=== PATIENT | female | born 1935 | race Caucasian/White ===

== ENCOUNTER 2016-10-23 10:45 | Inpatient (IN) | payer OTHER ==
[~2016-10-23] VITALS: Ht 157.5 cm; Wt 72.6 kg
[~2016-10-23 10:45] MED LIST: AMLODIPINE BESY10 MG PO; ANTIVERT 12.512.5 M1; HYZAAR 12.5 MG-1 TAB PO; IRON65 MG; LEVOTHYROXIN0.075 M1 PO; LORAZEPAM0.5 MG PO; LOVASTATIN40 MG PO; METAMUCIL1 PAC PO; METFORMIN500 MG PO; ZOLPIDEM TARTRAT5 MG PO
--- NOTE | 2016-10-23 10:55 | NUR ---
SENT BY DR. DAHL FOR LOW BLOOD COUNT. HAD LABS DONE THIS AM. DENIES SOB, WEAKNESS OR CHEST PAIN. COLOR PALE.
--- NOTE | 2016-10-23 11:04 | NUR ---
PT AMBULATORY TO [facility] RM 6 FROM TRIAGE
--- NOTE | 2016-10-23 11:06 | NUR ---
KELLEE ANGUIANO AT BEDSIDE
--- NOTE | 2016-10-23 11:08 | ED GENERAL ADULT ---
History of Present Illness General Chief Complaint: General Adult Stated Complaint: SENT IN BY DR DAHL FOR LOW RBC? Source: patient, family, old records Exam Limitations: no limitations Allergies Coded Allergies: No Known Drug Allergies (10/23/16) adhesive (UNKNOWN 10/23/16) Reconcile Medications Amlodipine Besylate 10 MG TABLET 10 MG PO DAILY BP (Reported) Hydrochlorothiazide/Losartan (Hyzaar 12.5 MG-100 MG) 1 TAB TAB 1 TAB PO DAILY UNKNOWN (Reported) Levothyroxine Sodium 75 MCG TABLET 0.075 MG PO DAILY AC THYROID (Reported) Lorazepam 0.5 MG TABLET 0.5 MG PO DAILY UNKNOWN (Reported) Lovastatin 40 MG TABLET 1 TAB PO DAILY CHOLOSTEROL (Reported) with food Melatonin 10 MG TABLET 1 TAB PO QPM SLEEP (Reported) METFORMIN HCL (Metformin) 500 MG TABLET 500 MG PO BID DIABETES (Reported) Sertraline HCl 50 MG TABLET 1 TAB PO DAILY MENTAL HEALTH (Reported) Triage Note: SENT BY DR. DAHL FOR LOW BLOOD COUNT. HAD LABS DONE THIS AM. DENIES SOB OR WEAKNESS. Triage Nurses Notes Reviewed? yes HPI: Patient is an 81-year-old female sent in by her primary care doctor, Dr. Dahl, due to low blood count. Patient had outpatient blood work at 6:30 AM this morning and was found to have a hemoglobin of 5.7. Patient reports that yesterday she was feeling generalized weakness and fatigue. Patient is complaint free today. Pain is 0 out of 10. Patient denies lightheadedness, chest pain, difficulty breathing, melena, hematochezia, abdominal pain. (ANNMARIE GOODSON,MAMI) Vital Signs & Intake/Output Vital Signs & Intake/Output Vital Signs Date Time Temp Pulse Resp B/P Pulse O2 O2 Flow FiO2 Ox Delivery Rate 10/23 1342 81 20 184/78 98 Room Air 10/23 1327 99.0 78 20 187/78 97 Room Air 10/23 1321 78 181/76 10/23 1312 78 181/76 10/23 1258 77 15 204/81 95 Room Air 10/23 1231 98.6 77 18 197/100 10/23 1230 98.6 77 18 197/100 98 Room Air 10/23 1122 92 Room Air Room Air 10/23 1053 97.2 76 20 170/65 95 Room Air Past History Travel History Traveled to [place] past 21 day No Medical History Any Pertinent Medical History? see below for history Neurological: NONE EENT: NONE Cardiovascular: NONE Respiratory: NONE Gastrointestinal: pandiverticulosis Hepatic: NONE Renal: NONE Musculoskeletal: NONE Psychiatric: NONE Endocrine: diabetes, hypothyroidism Cancer(s): NONE Surgical History Surgical History: non-contributory Psychosocial History What is your primary language Honduran Tobacco Use: Never used ETOH Use: denies use Family History Hx Contributory? No (MAMI ARORA) Review of Systems Review of Systems Constitutional: Reports: malaise (yesterday, none today). Denies: chills, fever. EENTM: Reports: no symptoms. Respiratory: Denies: cough, short of breath. Cardiovascular: Denies: chest pain, syncope. GI: Denies: abdominal pain, nausea, bloody stool, vomiting. Musculoskeletal: Denies: back pain, neck pain. Skin: Reports: no symptoms. Neurological/Psychological: Reports: no symptoms. Hematologic/Endocrine: Reports: see HPI. Denies: bruising, bleeding. Immunologic/Allergic: Reports: no symptoms. (MAMI ARORA) Physical Exam Physical Exam General Appearance: well developed/nourished, alert, awake Head: atraumatic, normal appearance Eyes: Bilateral: PERRL, EOMI, pale conjunctivae. Ears, Nose, Throat: normal pharynx, normal ENT inspection, hearing grossly normal Neck: normal inspection, supple, full range of motion Respiratory: normal breath sounds, chest non-tender, no respiratory distress, lungs clear Cardiovascular: regular rate/rhythm Gastrointestinal: normal bowel sounds, soft, non-tender Rectal: normal exam, normal rectal tone, minimally trace heme-positive stool Back: normal inspection, normal range of motion Extremities: normal inspection, normal capillary refill, normal range of motion, no edema Neurologic/Psych: no motor/sensory deficits, awake, alert, oriented x 3, normal gait, normal mood/affect Skin: normal color, warm/dry Lymphatic: no anterior cervical dejuan Core Measures ACS in differential dx? No CVA/TIA Diagnosis: No Severe Sepsis Present: No Septic Shock Present: No (MAMI ARORA) Progress Differential Diagnoses I considered the following diagnoses in my evaluation of the patient: Anemia, demand ischemia, GI bleed Initial ED EKG: normal sinus rhythm 74 bpm possible LVH, no acute ST/T-wave changes compared to previous EKG Prior EKG: changed (qrs v1, v2) (MAMI ARORA) Plan of Care: Orders Procedure Date/time Status Consistent Carbohydrate 3 10/23 D Active CBC WITHOUT DIFFERENTIAL 10/23 1800 Active Pathway - chart 10/23 1351 Active House Staff 10/23 1351 Active Misc Message 10/23 1318 Active ED Holding Orders 10/23 1318 Active Vital Signs 10/23 1318 Active Code Status 10/23 1315 Active Patient Data 10/23 1253 Active Intake & Output 10/23 1246 Active Admit to inpatient 10/23 1233 Active RETICULOCYTE COUNT 10/23 1226 Complete HIGH DENSITY LIPOPROTEIN 10/23 1226 Active FOLIC ACID 10/23 1226 Active VITAMIN B12 10/23 1226 Active HAPTOGLOBIN 10/23 1221 Active FERRITIN 10/23 1221 Active CBC WITHOUT DIFFERENTIAL 10/23 1221 Complete BLOOD PRODUCT PICKUP 10/23 1215 Active LEUKOCYTE POOR (PACKED CELLS) 10/23 1123 Active MISTAKE 10/23 1112 Active PARTIAL THROMBOPLASTIN TIME 10/23 1112 Complete PROTHROMBIN TIME 10/23 1112 Complete EKG 10/23 1112 Active TYPE & SCREEN (NOT X-MATCH) 10/23 1112 Active Lab Add-on Test 10/23 UNK Active VTE Mechanical Prophylaxis 10/23 UNK Active Current Medications Sig/Regina Start time Last Medication Dose Stop Time Status Admin Heparin Sodium 5,000 UNIT Q8 10/23 1400 AC (Porcine) Sodium Chloride 1,000 ML ONCE ONE 10/23 1400 AC (Normal Saline 0.9%) 10/24 0319 Laboratory Tests 10/23/16 1226: Ferritin 5.0 L, HDL Cholesterol Pending, Vitamin B12 Pending, Folate Pending, CBC w Diff NO MAN DIFF REQ, RBC 2.50 L, MCV 73.8 L, MCH 23.2 L, RDW 17.3 H, MPV 7.1 L, Gran % 75.3 H, Lymphocytes % 10.6 L, Monocytes % 9.7 H, Eosinophils % 3.4, Basophils % 1.0, Absolute Granulocytes 4.5, Absolute Lymphocytes 0.6 L, Absolute Monocytes 0.6, Absolute Eosinophils 0.2, Absolute Basophils 0.1, PUBS MCHC 31.4 L, Retic Count 2.59 H 10/23/16 1221: Haptoglobin Pending 10/23/16 1118: PT 11.7, INR 1.12, APTT 28 1120: Discussed patient's results from 0630 this morning. Discussed benefits and risks of blood transfusion. Patient consented to blood transfusion, signed consent form. 1150: Discussed with Dr. Oakley. 1220: Discussed with Dr. Dahl: send off another CBC and a ferritin level. Transfuse, admit to his service. 1240: Seen by Dr. Dahl: If blood pressure remains elevated, tell house staff to start patient on Hydralazine 25mg PO Q8 1255: Seen by housestaff Dr. Pollard: requesting order for 5mg of IV hydralazine (MAMI ARORA) Departure Departure Time of Disposition: 1226 Disposition: STILL A PATIENT Condition: Stable Clinical Impression Primary Impression: Anemia Qualifiers: Anemia type: unspecified type Qualified Code: D64.9 - Anemia, unspecified Secondary Impressions: Hypertension Referrals: TONYA DAHL MD (PCP/Family) Departure Forms: Customer Survey General Discharge Information Admission Note Spoke With: TONYA DAHL MD Documentation of Exam: Documentation of any treatments & extenuating circumstances including Concerns Regarding Discharge (functional status, medication knowledge or non-compliance, living conditions, etc.) that warrant an admission rather than observation: Blood transfusion, serial complete blood cell counts, GI consultation, consider hematology consultation. (MAMI ARORA) PA/DIELECTRIC PRESS OPERATOR Co-Sign Statement Statement: ED Attending supervision documentation- [x] I saw and evaluated the patient. I have also reviewed all the pertinent lab results and diagnostic results. I agree with the findings and the plan of care as documented in the PA's/DIELECTRIC PRESS OPERATOR's documentation. [] I have reviewed the ED Record and agree with the PA's/DIELECTRIC PRESS OPERATOR's documentation. [] Additions or exceptions (if any) to the PAs/DIELECTRIC PRESS OPERATOR's note and plan are summarized below: [] (LACI JONES,ALICE Fernandez) Critical Care Note Critical Care Note Critical Care Time: 30-74 min (MAMI ARORA)
--- NOTE | 2016-10-23 11:20 | NUR ---
IV ACCESS ESTABLISHED, #20 RAC LABS (PINK AND BLUE TOP TUBES) DRAWN/SENT TO LAB PT TRACE GUIAC POSITIVE PER RECTAL EXAM BY KELLEE ANGUIANO DONE WITH THIS RN PRESENT. PER PATIENT HAD ROUTINE BLOOD WORK DONE THIS MORNING STATES LAST WEEK HAD SOME VOMITING RELATED TO MEDICATION CHANGES AND SINCE THEN "SOME DAYS I FEEL GOOD AND SOME DAYS I FEEL TIRED". STATES TODAY WAS A GOOD DAY SHE WENT SHOPPING. DENIES ANY PAIN OR DIFFICULTY BREATHING.
[2016-10-23] MEDS ORDERED: SERTRALINE HCL50 MG PO (11:36)
[2016-10-23 11:37] LABS: PT 11.7 SEC (9.4-12.5); PTT 28 SEC (25-37)
[2016-10-23] MEDS ORDERED: MELATONIN10 M2 PO (11:37)
--- NOTE | 2016-10-23 12:32 | NUR ---
PT MEIDCATED WITH NORVASC PER EMAR FOR BP 197/100.
[2016-10-23 12:36] LABS: ABSOLUTE BASOPHIL COUNT 0.1 /CUMM (0.0-0.2); ABSOLUTE EOSINOPHIL COUNT 0.2 /CUMM (0.0-0.7); ABSOLUTE GRANULOCYTE CT 4.5 /CUMM (1.4-6.5); ABSOLUTE MONOCYTE COUNT 0.6 /CUMM (0.10-0.60); MEAN CORPUSCULAR HGB 23.2 PG (27.0-31.0)
[2016-10-23 12:43] LABS: ABSOLUTE LYMPH COUNT 0.6 /CUMM (1.2-3.4); EOSINOPHIL % 3.4 % (0-5); GRANULOCYTE % 75.3 % (42.2-75.2); MEAN CORPUSCULAR HGB CONC 31.4 G/DL (33.0-37.0); MEAN CORPUSCULAR VOLUME 73.8 FL (81.0-99.0); MEAN PLATELET VOLUME 7.1 FL (7.4-10.4); PLATELET COUNT 561 /CUMM (130-400); RBC DISTRIBUTION WIDTH 17.3 % (11.5-14.5)
[2016-10-23 12:47] LABS: HEMATOCRIT 18.4 % (37-47)
--- NOTE | 2016-10-23 12:51 | NUR ---
CRITICAL TEST RESULTS [id number] DEDE QUACH 81 F TESTS AND RESULTS: H/H 5.8/18.4 Results received and read back by: PARRISH LEAVITT Results received date and time: 10/23/16 1251 The following provider was notified of the results, and read the results back: KELLEE VINCENT Notified date and time: 10/23/16 at 1248
--- NOTE | 2016-10-23 12:56 | NUR ---
PT. IS A/O X 3. DENIES ANY COMPLAINTS AT THIS TIME. 500 ML OF PRBC BLOOD INFUSING AT THIS TIME PER ORDERS. VSS. NO ACUTE DISTRESS NOTED. WILL CONTINUE TO MONITOR.
--- NOTE | 2016-10-23 13:22 | NUR ---
PT B/P 181/76, MEDICATED WITH HYDRALAZINE PER ORDERS HOUSE STAFF WILL CONTINUE TO MONITOR.
--- NOTE | 2016-10-23 13:27 | NUR ---
PT HAS BED ASSIGNMENT 238-1. RN NOTIFIED.
--- NOTE | 2016-10-23 13:34 | History & Physical ---
See Addendum General Information and HPI MD Statement: I have seen and personally examined DEDE QUACH and documented this H&P. The patient is a 81 year old F who presented with a patient stated chief complaint of [anemia, weakness]. Source of Information: patient, old records Exam Limitations: no limitations History of Present Illness: Patient is 81 year old female with PMH of HTN, HLD, acid reflux, anemia ( previously on iron pills, stopped 6 months ago by PCP after HB number improved), was sent by her PCP, Dr. Viramontes, after her morning CBC results. Per records, patient's HB was 5.7. Patient reports that she has felt very weak lately however she denied any palpitations, exertional dyspnea, any evidence of bleeding, she has felt a little constipated but never saw blood in her stools. Patient reports that she consumes a tea and a toast diet with little intake of fresh green leafy vegitables. Patient had an egd and colonoscopy done in 2010 was negative for any obvious finding. Patient lives at home with her and is completely independent in her activitis and walking. Denies any Chest pain, abdominal pain, headache, dizziness, lightheadedness, burning micturation etc. Patient's BP in ER was 204/80, she was given 10 mg oral amlodipine followed by 5 mg IV hydralazine after 15 minutes. Allergies/Medications Allergies: Coded Allergies: No Known Drug Allergies (10/23/16) adhesive (UNKNOWN 10/23/16) Home Med list Amlodipine Besylate 10 MG TABLET 10 MG PO DAILY BP (Reported) Hydrochlorothiazide/Losartan (Hyzaar 12.5 MG-100 MG) 1 TAB TAB 1 TAB PO DAILY UNKNOWN (Reported) Levothyroxine Sodium 75 MCG TABLET 0.075 MG PO DAILY AC THYROID (Reported) Lorazepam 0.5 MG TABLET 0.5 MG PO DAILY UNKNOWN (Reported) Lovastatin 40 MG TABLET 1 TAB PO DAILY CHOLOSTEROL (Reported) with food Melatonin 10 MG TABLET 1 TAB PO QPM SLEEP (Reported) METFORMIN HCL (Metformin) 500 MG TABLET 500 MG PO BID DIABETES (Reported) Sertraline HCl 50 MG TABLET 1 TAB PO DAILY MENTAL HEALTH (Reported) Compliance With Home Meds: GOOD Past History Travel History Traveled to [place] past 21 day No Medical History Neurological: NONE EENT: NONE Cardiovascular: NONE Respiratory: NONE Gastrointestinal: pandiverticulosis Hepatic: NONE Renal: NONE Musculoskeletal: NONE Psychiatric: NONE Endocrine: diabetes, hypothyroidism Cancer(s): NONE Surgical History Surgical History: hernia repair-incisional Past Family/Social History Psychosocial History ETOH Use: denies use Review of Systems Review of Systems Constitutional: Reports: see HPI. Exam & Diagnostic Data Last 24 Hrs of Vital Signs/I&O Vital Signs Date Time Temp Pulse Resp B/P Pulse O2 O2 Flow FiO2 Ox Delivery Rate 10/23 1327 99.0 78 20 187/78 97 Room Air 10/23 1321 78 181/76 10/23 1312 78 181/76 10/23 1258 77 15 204/81 95 Room Air 10/23 1231 98.6 77 18 197/100 10/23 1230 98.6 77 18 197/100 98 Room Air 10/23 1122 92 Room Air Room Air 10/23 1053 97.2 76 20 170/65 95 Room Air Intake & Output 10/23 1600 10/23 0800 10/23 0000 Intake Total 500 Output Total Balance 500 Intake, Blood 500 Product Patient 72.575 kg Weight Physical Exam General Appearance Alert, Oriented X3, Cooperative, No Acute Distress Skin pale Neck Supple, No JVD Cardiovascular Regular Rate, Normal S1, Normal S2 Lungs Clear to Auscultation, Normal Air Movement Abdomen Normal Bowel Sounds, Soft, No Tenderness Extremities b/l pitting edema Last 24 Hrs of Labs/Gerard: Laboratory Tests 10/23/16 1226: Ferritin 5.0 L, CBC w Diff NO MAN DIFF REQ, RBC 2.50 L, MCV 73.8 L, MCH 23.2 L, RDW 17.3 H, MPV 7.1 L, Gran % 75.3 H, Lymphocytes % 10.6 L, Monocytes % 9.7 H, Eosinophils % 3.4, Basophils % 1.0, Absolute Granulocytes 4.5, Absolute Lymphocytes 0.6 L, Absolute Monocytes 0.6, Absolute Eosinophils 0.2, Absolute Basophils 0.1, PUBS MCHC 31.4 L 10/23/16 1118: PT 11.7, INR 1.12, APTT 28 Assessment/Plan Assessment: Patient is 81 year old female with PMH of HTN, HLD, acid reflux, anemia ( previously on iron pills, stopped 6 months ago by PCP after HB number improved), was sent by her PCP, Dr. Viramontes, after her morning CBC results. Per records, patient's HB was 5.7. Patient reports that she has felt very weak lately however she denied any palpitations, exertional dyspnea, any evidence of bleeding, she has felt a little constipated but never saw blood in her stools. Patient reports that she consumes a tea and a toast diet with little intake of fresh green leafy vegitables. Patient had an egd and colonoscopy done in 2010 was negative for any obvious finding. Vitals and Labs as above No imaging done in ER Assessment and plan WIll admit the patient to general medicine floor Patient is getting transfusion in ER, will check CBC post transfusion and keep HB > 8 GI consult service on board, per Dr. Jones, patient can eat and would probably benefit from pill cam study as an outpatient. Will continue amlodipine for HTN and hold HCTZ as patient has elevated creatinine. WIll hydarte with one bag of NS as patient looks dry will hold metformin and check finger sticks, can start on low dose SS if BS > 200 DVT ppx SC heprin Patient is Full code As Ranked By This Provider Problem List: 1. Anemia Qualifiers Anemia type: unspecified type Qualified Code: D64.9 - Anemia, unspecified Core Measures/Miscellaneous Acute Coronary Syndrome ACS Diagnosis: No Cerebrovascular Accident CVA/TIA Diagnosis: No Congestive Heart Failure CHF Diagnosis: No Venous Thromboembolism VTE Risk Factors: Age > 40 VTE Prophylaxis Ordered Inpt: Mechanical (ALPS/TEDS) No Mech VTE prophylaxis d/t: No contraindications No VTE Pharm Prophylaxis d/t: No contraindications VTE Diagnosis: No VTE Type: NONE VTE Confirmed by (Test): NONE Severe Sepsis Severe Sepsis Present: No Septic Shock Septic Shock Present: No Miscellaneous Documentation Attending Case Discussed With: TONYA VIRAMONTES MD Primary Care Physician: TONYA VIRAMONTES MD Patient sees these Specialists Ana M Level of Patient Care: General Medicine
--- NOTE | 2016-10-23 13:48 | NUR ---
PT ROOM IS READY PER NURSING AREA INTELLIGENCE TECHNICIAN.
--- NOTE | 2016-10-23 14:18 | NUR ---
REPORT TO DAVID LEBRON
--- NOTE | 2016-10-23 14:44 | NUR ---
BLOOD TRANSFUSION COMPLETED AWAITING TRANSPORT AT THIS TIME.
--- NOTE | 2016-10-23 15:22 | NUR ---
TRANSPORT CALLED AGAIN, THEY RELAYED THAT THEY WILL BE HERE SHORTLY.
--- NOTE | 2016-10-23 15:40 | NUR ---
PT ARRIVED TO ROOM 238 VIA STRECHER FROM ER AT 1540. PT AMBULATED TO BED FROM STRETCHER, STEADY GAIT. UPON ASSESSMENT, PT A/V/OX3. ON RA. LCTA. DENIES ANY CP, SOB. SKIN INTACT. LAST BM 10/23/16. FAMILY AT BEDSIDE. PT AWARE OF POC AND NEED FOR ONE MORE UNIT OF PRBCS AT THIS TIME. #20 RAC FLUSHING EASILY. PT OFFERS NO COMPLAINTS. ORIENTED TO ROOM, CALL AGUERO, AND STAFF. WILL CONTINUE TO MONITOR.
--- NOTE | 2016-10-23 16:18 | Cons- Gastroenterology ---
General Information and HPI Consulting Request Date of Consult: 10/23/16 Requested By: NABILA OJNES,TONYA Wiseman Reason for Consult: anemia, occult blood in stool Source of Information: patient, old records Exam Limitations: no limitations History of Present Illness: Ms. Howard is an 81 year old female who was sent in by her PCP after she was found to be profoundly anemic on routine blood work. She has noted some generalized weakness over the past sevearl weeks, but the blood work was actually being drawn in anticipation of an office visit in the coming weeks. She is without any abdominal pain with eating. She did have some bilious vomiting a few weeks ago when she tried a new medication, but she has been without any hematemesis and this stopped with cessation of the medication. She has been having a significant amount of heartburn that she has been taking a lot of Tums for, but she is without any significant dysphagia. Her bowel movements are normal and she is without any bright blood per rectum, melena, diarrhea or constipation. Since arrival in the ER she has been hemodynamically stable, but she was noted to have a hemoglobin of 5.8 with an MCV of 73 and an elevated platelet count. She had a similar hospitalization about 1 year ago for anemia where she underwent an endoscopic workup which was negative for source of anemia or active bleeding and it was recommended she have a PillCam at that time which she declined. Allergies/Medications Allergies: Coded Allergies: No Known Drug Allergies (10/23/16) adhesive (UNKNOWN 10/23/16) Home Med List: Amlodipine Besylate 10 MG TABLET 10 MG PO DAILY BP (Reported) Hydrochlorothiazide/Losartan (Hyzaar 12.5 MG-100 MG) 1 TAB TAB 1 TAB PO DAILY UNKNOWN (Reported) Levothyroxine Sodium 75 MCG TABLET 0.075 MG PO DAILY AC THYROID (Reported) Lorazepam 0.5 MG TABLET 0.5 MG PO DAILY UNKNOWN (Reported) Lovastatin 40 MG TABLET 1 TAB PO DAILY CHOLOSTEROL (Reported) with food Melatonin 10 MG TABLET 1 TAB PO QPM SLEEP (Reported) METFORMIN HCL (Metformin) 500 MG TABLET 500 MG PO BID DIABETES (Reported) Sertraline HCl 50 MG TABLET 1 TAB PO DAILY MENTAL HEALTH (Reported) Current Medications: Current Medications Sig/Regina Start time Last Medication Dose Route Stop Time Status Admin Amlodipine Besylate 10 MG DAILY 10/24 1000 AC PO Amlodipine Besylate 0 .STK-MED ONE 10/23 1227 DC PO Amlodipine Besylate 10 MG ONCE ONE 10/23 1215 DC 10/23 PO 10/23 1216 1231 Atorvastatin Calcium 10 MG 1700 10/23 1700 AC PO Heparin Sodium 5,000 UNIT Q8 10/23 1400 AC (Porcine) SC Hydralazine HCl 0 .STK-MED ONE 10/23 1312 DC .ROUTE Hydralazine HCl 5 MG ONCE ONE 10/23 1300 DC 10/23 IV 10/23 1301 1321 Levothyroxine Sodium 0.075 MG DAILY AC 10/23 1407 AC PO Melatonin 3 MG AT BEDTIME 10/23 2200 AC PO Sertraline HCl 50 MG DAILY 10/23 1406 AC PO Sodium Chloride 1,000 ML ONCE ONE 10/23 1400 AC IV 10/24 0319 Past History Travel History Traveled to [place] past 21 day No Medical History Neurological: NONE EENT: NONE Cardiovascular: NONE Respiratory: NONE Gastrointestinal: pandiverticulosis Hepatic: NONE Renal: NONE Musculoskeletal: NONE Psychiatric: NONE Endocrine: diabetes, hypothyroidism Cancer(s): NONE Surgical History Surgical History: non-contributory Psychosocial History ETOH Use: denies use Review of Systems Review of Systems Constitutional: Reports: malaise, weakness. Denies: fever. EENTM: Denies: no symptoms. Cardiovascular: Denies: no symptoms. Respiratory: Denies: no symptoms. GI: Reports: see HPI. Genitourinary: Denies: no symptoms. Musculoskeletal: Denies: no symptoms. Skin: Denies: no symptoms. Neurological/Psychological: Denies: no symptoms. Hematologic/Endocrine: Denies: no symptoms. Immunologic/Allergic: Denies: no symptoms. All Other Systems: Reviewed and Negative Exam & Diagnostic Data Vital Signs and I&O Vital Signs Date Time Temp Pulse Resp B/P Pulse O2 O2 Flow FiO2 Ox Delivery Rate 10/23 1443 99.1 74 18 172/75 96 Room Air 10/23 1413 99.0 75 18 174/75 98 Room Air 10/23 1342 81 18 184/78 98 Room Air 10/23 1327 99.0 78 18 187/78 97 Room Air 10/23 1321 78 181/76 10/23 1312 78 181/76 10/23 1258 77 15 204/81 95 Room Air 10/23 1231 98.6 77 18 197/100 10/23 1230 98.6 77 18 197/100 98 Room Air 10/23 1122 92 Room Air Room Air 10/23 1053 97.2 76 20 170/65 95 Room Air Intake & Output 10/23 0400 10/22 0400 10/21 0400 Intake Total 500 Output Total Balance 500 Intake, Blood 500 Product Patient 160 lb Weight Physical Exam General Appearance: well developed/nourished, no apparent distress, alert, awake , comfortable Head: atraumatic, normal appearance Eyes: Bilateral: normal appearance. Ears, Nose, Throat: normal pharynx, normal ENT inspection Neck: normal inspection, supple, full range of motion Respiratory: normal breath sounds, chest non-tender Cardiovascular: regular rate/rhythm Gastrointestinal: normal bowel sounds, soft, non-tender Rectal: deferred, trace positive per ER Back: normal inspection Extremities: normal inspection, normal capillary refill, normal range of motion, no edema Neurologic/Psych: no motor/sensory deficits, awake, alert, oriented x 3 Skin: intact, normal color, warm/dry Results Pertinent Lab Results: Laboratory Tests 10/23 10/23 10/23 1226 1221 1118 Chemistry Ferritin (11.1 - 264 ng/mL) 5.0 L HDL Cholesterol (40 - 60 mg/dL) 46 Vitamin B12 (239 - 931 pg/mL) 673 Folate (2.76 - 20.0 ng/mL) > 20.0 H Coagulation PT (9.4 - 12.5 SEC) 11.7 INR (0.90 - 1.19) 1.12 APTT (25 - 37 SEC) 28 Hematology CBC w Diff NO MAN DIFF REQ WBC (4.8 - 10.8 /CUMM) 6.0 RBC (4.20 - 5.40 /CUMM) 2.50 L Hgb (12.0 - 16.0 G/DL) 5.8 *L Hct (37 - 47 %) 18.4 *L MCV (81.0 - 99.0 FL) 73.8 L MCH (27.0 - 31.0 PG) 23.2 L RDW (11.5 - 14.5 %) 17.3 H Plt Count (130 - 400 /CUMM) 561 H MPV (7.4 - 10.4 FL) 7.1 L Gran % (42.2 - 75.2 %) 75.3 H Lymphocytes % (20.5 - 51.1 %) 10.6 L Monocytes % (1.7 - 9.3 %) 9.7 H Eosinophils % (0 - 5 %) 3.4 Basophils % (0.0 - 2.0 %) 1.0 Absolute Granulocytes (1.4 - 6.5 /CUMM) 4.5 Absolute Lymphocytes (1.2 - 3.4 /CUMM) 0.6 L Absolute Monocytes (0.10 - 0.60 /CUMM) 0.6 Absolute Eosinophils (0.0 - 0.7 /CUMM) 0.2 Absolute Basophils (0.0 - 0.2 /CUMM) 0.1 PUBS MCHC (33.0 - 37.0 G/DL) 31.4 L Retic Count (0.5 - 2.0 %) 2.59 H Haptoglobin Pending Assessment/Plan Assessment/Recommendations: Assessment: Ms. Howard is an 81-year-old female who has been noted to have a microcytic anemia on routine lab work. Considering she is microcytic and is without a history of overt GI bleeding I suspect that she has been losing blood over time and considering her negative endoscopic workup in 2014 when she also presented with anemia I suspect a small bowel source of anemia such as small bowel AVMs. As this is now the second time in the past several years this has occurred I suspect that the bleeding is benign in etiology. Her elevated platelet count does suggest that she may have had some active recent bleeding, but her BUN to creatinine ratio is not elevated and she is hemodynamically stable therefore I do not feel she has any active bleeding and repeat endoscopic intervention is not urgent. I suspect her blood count will improve with transfusion and she will likely be able to be discharged home over the weekend to pursue an outpatient PillCam which she is now agreeable to. Recommendations: 1. Follow CBCs every 12 hours and transfuse as needed to keep her hemoglobin greater than 7 or as per cardiology recommendations. 2. Start an oral PPI for her reflux. 3. Start oral iron supplementation. 4. Notify GI for signs of overt GI bleeding such as melena or bright blood per rectum. 5. Advance diet as tolerated. 6. If the patient's hemoglobin corrected appropriately with transfusion would give consideration to discharging her over the weekend to follow up for an outpatient small bowel PillCam, however if her hemoglobin does not improve with transfusion consideration will then be given for an inpatient push enteroscopy which would be performed on Wednesday. I will continue to follow this patient and make further recognitions based on her clinical course. Problem List: 1. Anemia Copies To: NABILA JONES,TONYA Trevizo. Consult Acknowledgment - Thank you for your consult request.
[2016-10-23 16:50] VITALS: BP 152/42
--- NOTE | 2016-10-23 17:53 | Admission Certification ---
Admission Certification Certification Statement - As attending physician, I certify that at the time of - admission, based on clinical presentation, severity of - symptoms, need for further diagnostic testing and - therapeutic interventions, and risk of adverse outcomes - without in-hospital treatment, in my clinical assessment, - this patient requires an acute hospital stay for a minimum - of two nights or longer. I have also considered psychsocial - factors such as support system, advanced age, financial - issues, cognitive issues, and failed out-patient treatments, - past re-admission history, safety of patient, and lack of - compliance as applicable. Specific rationale supporting this admission is: SEVERE ANEMIA
[2016-10-23 21:55] LABS: ABSOLUTE BASOPHIL COUNT 0 /CUMM (0.0-0.2); ABSOLUTE EOSINOPHIL COUNT 0.2 /CUMM (0.0-0.7); ABSOLUTE GRANULOCYTE CT 5.1 /CUMM (1.4-6.5); ABSOLUTE LYMPH COUNT 0.9 /CUMM (1.2-3.4); ABSOLUTE MONOCYTE COUNT 0.8 /CUMM (0.10-0.60); BASOPHIL % 0.2 % (0.0-2.0); EOSINOPHIL % 3.4 % (0-5); GRANULOCYTE % 71.9 % (42.2-75.2); MEAN CORPUSCULAR HGB CONC 32.8 G/DL (33.0-37.0); MEAN PLATELET VOLUME 7.1 FL (7.4-10.4); PLATELET COUNT 495 /CUMM (130-400); RBC DISTRIBUTION WIDTH 18.1 % (11.5-14.5); WHITE BLOOD CELL COUNT 7.2 /CUMM (4.8-10.8)
[2016-10-23 22:03] LABS: HEMATOCRIT 25.6 % (37-47); MEAN CORPUSCULAR HGB 25.6 PG (27.0-31.0); MEAN CORPUSCULAR VOLUME 78.1 FL (81.0-99.0); RED BLOOD CELL CT 3.28 /CUMM (4.20-5.40)
--- NOTE | 2016-10-23 23:00 | NUR ---
CALLED [employer] US[employer] INTERFACE DEVELOPER IMGE ABOUT PTS BP AT THIS TIME: 158/62. PER [employer] USER INTERFACE DEVELOPER, BP OK. REPORT PASSED ONTO NEXT SHIFT RN. WILL CONTINUE TO MONITOR.
[2016-10-23 23:05] VITALS: BP 158/62
[2016-10-24] VITALS (7 sets, daily range): BP systolic 150–180; BP diastolic 54–80
--- NOTE | 2016-10-24 01:58 | NUR ---
PT BP 160/74 HR 71, DENIES CHEST PAIN, DENIES SOB, DIZZINES, NAUSEA/VOMITTING. PAGED LISANDRO SAMUELS, ONE TIME HYDROCHOLORTHIAZIDE ORDERED, WILL RECHECK BP IN 45 MINUTES.
--- NOTE | 2016-10-24 05:25 | Event Note ---
Event Note Event Note: At 5 AM, we were alerted by nursing staff that patient was noted to be confused, which was an acute change from her baseline of AAO X 3. Her BP was noted to be elevated to 180/70 despite receiving 12.5 mg of PO HCTZ two hours earlier. Of note, patient had been endorsing headache for the past few hours. Patient was examined at bedside. She appeared to comfortable and in no respiratory distress. Per nursing staff, she was satting well on room air. She was oriented to person only, and was not able to state where she was or the date. She had no gross focal deficits on neurological exam. She appeared confused and slightly agitated and combative, initially refusing to comply with testing. CT Head, EKG and troponins were ordered. Another dose of HCTZ 12.5 mg PO was given. Fingerstick blood glucose was 124. EKG showed normal sinus rhythm and no acute changes. CT Head came back negative for any acute process including bleed. At 7 AM, patient' s mental status had improved completely back to baseline.
[2016-10-24 06:39] LABS: ABSOLUTE BASOPHIL COUNT 0 /CUMM (0.0-0.2); ABSOLUTE EOSINOPHIL COUNT 0.3 /CUMM (0.0-0.7); ABSOLUTE LYMPH COUNT 0.5 /CUMM (1.2-3.4); ABSOLUTE MONOCYTE COUNT 0.6 /CUMM (0.10-0.60); BASOPHIL % 0.2 % (0.0-2.0); GRANULOCYTE % 80.3 % (42.2-75.2); HEMATOCRIT 27.6 % (37-47); MEAN CORPUSCULAR HGB 25.5 PG (27.0-31.0); MEAN CORPUSCULAR HGB CONC 32.7 G/DL (33.0-37.0); MEAN CORPUSCULAR VOLUME 78.1 FL (81.0-99.0); MEAN PLATELET VOLUME 7.1 FL (7.4-10.4); PLATELET COUNT 532 /CUMM (130-400); RBC DISTRIBUTION WIDTH 17.7 % (11.5-14.5); RED BLOOD CELL CT 3.54 /CUMM (4.20-5.40); WHITE BLOOD CELL COUNT 7.5 /CUMM (4.8-10.8)
--- NOTE | 2016-10-24 07:00 | NUR ---
AT 0500 CALLED INTO PT'S ROOM BY TECH, PT WAS COMBATIVE WITH TECH TRYING TO HIT HER, PT IS CONFUSED AND ONLY ORIENTED TO SELF, VITALS TAKEN 180/70, HR 99, 02 SAT 97% ON RA, RR 20, AFEBRILE, LISANDRO SAMUELS MD PAGED AND TO BEDSIDE TO ASSESS, STAT LABS, EKG, BLOOD SUGAR AND HEAD CT ORDERED. PT REFUSING TO LET THIS RN OR TECH TAKE BLOOD SUGAR, DRAWN LABS OR DO EKG. PT INSISTING TO SPEAK TO , CALLED AND CAME TO HOSPITAL. PT PARANOID STATING THE WATER SHE IS DRINKING IS PUTTING HER TO SLEEP AND QUESTIONING STAFF. AT BEDSIDE, PT NOW ALLOWING STAFF TO DRAWN LABS, TAKE BLOOD SUGAR AND DO EKG. BLOOD SUGAR 124. PT NOW ALERT AND ORIENTED X3 UP TO BATHRROM WITH STEADY GAIT AND FULLY AWARE, APOLOZING FOR BEING COMBATIVE EARLIER. PT DOWN TO CAT SCAN, WILL FOLLOW UP.
--- NOTE | 2016-10-24 07:09 | CT SCAN REPORT ---
EXAMINATION: CT HEAD WITHOUT CONTRAST CLINICAL INFORMATION: Acute onset confusion. Elevated blood pressure. COMPARISON: 04/29/2012 TECHNIQUE: Contiguous axial imaging was performed from the skull base to vertex without intravenous contrast. DLP: 601 mGy-cm. FINDINGS: Motion limits the evaluation. There is no evidence of acute intracranial hemorrhage or territorial infarction. No abnormal mass effect or midline shift is seen. Pollard to white matter differentiation is well preserved. No extra-axial fluid collections are identified. No hydrocephalus. Proportional prominence of the ventricles and sulcal spaces is consistent with moderate volume loss. Patchy periventricular and deep white matter hypoattenuation is consistent with mild small vessel ischemic changes. The osseous structures and soft tissues are normal. The mastoid air cells and visualized portions of the paranasal sinuses are well aerated. IMPRESSION: Motion limited study. No acute intracranial pathology. This critical result was discussed with Brianne Durán MD by telephone at 10/24/2016 6:55 AM and it was ascertained that the content and urgency of the report was understood at the time of direct communication.
--- NOTE | 2016-10-24 07:32 | PN- Housestaff ---
Subjective Follow-up For: Severe anemia Complaints: no complaints Subjective: I examined the patient today. She was resting comfortably in her chair not in any acute distress, sitting did not have any complaints either. Vitals have been stable. However, overnight she had an episode of hypertension and confusion. CT scan was normal, blood pressure was lowered. No changes neurologically. Review of Systems Constitutional: Reports: no symptoms. Cardiovascular: Reports: no symptoms. Respiratory: Reports: no symptoms. Gastrointestinal: Reports: no symptoms. Genitourinary: Reports: no symptoms. Musculoskeletal: Reports: no symptoms. Neurological/Psychological: Reports: no symptoms. Hematologic/Endocrine: Denies: bruising, bleeding, polyuria, polydipsia. Objective Last 24 Hrs of Vital Signs/I&O Vital Signs Date Time Temp Pulse Resp B/P Pulse O2 O2 Flow FiO2 Ox Delivery Rate 10/24 1457 97.7 68 20 160/58 94 10/24 0937 80 168/70 10/24 0728 176/80 10/24 0530 97.6 100 20 180/70 97 Room Air 10/24 0241 160/68 10/24 0045 160/74 10/23 2305 97.6 71 20 158/62 92 Room Air 10/23 1650 98.0 79 20 152/42 96 Room Air Intake & Output 10/24 1600 10/24 0800 10/24 0000 Intake Total 231 844 6309 Output Total Balance 578 515 6615 Intake, IV 225 500 Intake, Oral 600 240 600 Number 0 Bowel Movements Physical Exam General Appearance: Alert, Oriented X3, Cooperative, No Acute Distress Other Physical Findings: Physical examnination: General: well nourished patient not in distress, pulse is bounding (expected) Head: Normocephalic, atraumatic Eyes: Pupils normal in size, regular, reacting to light and accommodation, EOM normal Ears: B/l normal on inspection Nose: Normal on inspection Throat/mouth: Moist mucosa Neck: Supple, full range of motion, no thyromegaly Heart: Regular rate, regular rhythm, heart sound is loud S2 Lung: Normal breath sound bilaterally Added sound not heard Abd: Soft, non-tender, no distention appreciated Back: Normal range of motion Extremities: Normal knee exam bilaterally, no pedal edema, Distal neurovascular intact Neurologic: Alert, oriented x3, Cranial exam grossly intact, Speech is clear and coherent Skin: Warm and dry Psychiatric: Calm, cooperative, coherant Current Medications: Current Medications Sig/Regina Start time Last Medication Dose Route Stop Time Status Admin Acetaminophen 650 MG ONCE ONE 10/24 0300 DC 10/24 PO 10/24 030 0307 Acetaminophen 650 MG ONCE ONE 10/23 1999 DC 10/23 PO 10/23 Amlodipine Besylate 10 MG DAILY 10/24 1000 AC 10/24 PO 0937 Atorvastatin Calcium 10 MG 1700 10/23 1700 AC 10/23 PO 211 Ferrous Sulfate 325 MG TID 10/23 2200 AC 10/24 PO 0937 Heparin Sodium 5,000 UNIT Q8 10/23 1400 DC (Porcine) SC Hydralazine HCl 25 MG TID 10/24 1600 AC PO Hydrochlorothiazide 12.5 MG DAILY 10/24 1000 AC 10/24 PO 0937 Hydrochlorothiazide 12.5 MG ONCE ONE 10/24 0545 DC 10/24 PO 10/24 0546 0606 Hydrochlorothiazide 12.5 MG ONCE ONE 10/24 0530 CAN PO 10/24 0531 Hydrochlorothiazide 12.5 MG ONCE ONE 10/24 0115 DC 10/24 PO 10/24 0116 0143 Ibuprofen 600 MG ONCE ONE 10/23 1915 CAN PO 10/23 1916 Insulin Aspart 0 TIDAC 10/24 0800 AC SC Levothyroxine Sodium 0.075 MG DAILY AC 10/23 1407 AC 10/24 PO 0606 Lorazepam 0.5 MG DAILY 10/24 1000 AC 10/24 PO 10/31 0959 0934 Losartan Potassium 100 MG DAILY 10/24 1000 DC PO Melatonin 3 MG AT BEDTIME 10/23 2199 DC 10/23 PO 2113 Melatonin 10 MG AT BEDTIME 10/23 2199 AC PO Omeprazole 20 MG DAILY AC 10/24 0700 AC 10/24 PO 0606 Sertraline HCl 50 MG DAILY 10/23 1406 AC 10/24 PO 0935 Sodium Chloride 1,000 ML ONCE ONE 10/23 1400 DC 10/23 IV 10/24 Last 24 Hrs of Lab/Gerard Results Last 24 Hrs of Labs/Mics: Laboratory Tests 10/24/16 0600: Troponin I 0.02, CBC w Diff NO MAN DIFF REQ, RBC 3.54 L, MCV 78.1 L, MCH 25.5 L, RDW 17.7 H, MPV 7.1 L, Gran % 80.3 H, Lymphocytes % 7.2 L, Monocytes % 8.3, Eosinophils % 4.0, Basophils % 0.2, Absolute Granulocytes 6.0, Absolute Lymphocytes 0.5 L, Absolute Monocytes 0.6, Absolute Eosinophils 0.3, Absolute Basophils 0, PUBS MCHC 32.7 L 10/23/162124: CBC w Diff NO MAN DIFF REQ, RBC 3.28 L, MCV 78.1 L, MCH 25.6 L, RDW 18.1 H, MPV 7.1 L, Gran % 71.9, Lymphocytes % 12.7 L, Monocytes % 11.8 H, Eosinophils % 3.4, Basophils % 0.2, Absolute Granulocytes 5.1, Absolute Lymphocytes 0.9 L, Absolute Monocytes 0.8 H, Absolute Eosinophils 0.2, Absolute Basophils 0, PUBS MCHC 32.8 L Assessment/Plan Assessment: 81-year-old female with past medical history of hypertension, hyperlipidemia, acid reflux, anemia not taking iron pills since 6 months, is currently being treated in the general medical floor for the following issues: #Anemia Her initial presentation of anemia with hemoglobin 5.8 has increased to 9.0 after 2 units of packed RBCs She has remained asymptomatic all throughout We'll continue to monitor her CBCs in the morning #1 episode of confusion This morning, she had an episode of confusion, headache, hypertension. CT scan was normal, confusion cleared out and hypertension was treated. She does not have any neurological, cardiac or respiratory symptoms. Regular diet DVT prophylaxis by Alps Full code Problem List: 1. Anemia Pain Ratin Pain Location: - Pain Goal: Remain pain free Pain Plan: When necessary Tomorrow's Labs & Rationales: CBC to monitor her anemia
--- NOTE | 2016-10-24 13:11 | PN- Gastroenterology ---
Assessment/Plan Assessment/Recommendations: Assessment: Ms. Buchanan is an 81-year-old female who was admitted yesterday for a microcytic anemia noted on routine lab work. She has been transfused with 2 units of PRBCs with appropriate correction in her hgb and she remains without any overt GI bleeding. She had some confusion this morning which has since resolved and a ct scan of her head was unremarkable. She should have an outpatient small bowel pill cam, but if she is still an inpatient come Wednesday it may be reasonable to do a push enteroscopy to look for a small bowel source of anemia. Recommendations: 1. Follow daily CBCs and transfuse as needed to keep her hemoglobin greater than 7 or as per cardiology recommendations. 2. Continue an oral PPI for her reflux. 3. Minimize NSAID use 3. Continue oral iron supplementation. 4. Notify GI for signs of overt GI bleeding such as melena or bright blood per rectum. 5. Advance diet as tolerated. 6. Outpatient small bowel pill cam, but if pt to be here on Wednesday consideration will then be given for a push enteroscopy I will continue to follow this patient and make further recommendations based on her clinical course and results of repeat blood work. Problem List: 1. Anemia Subjective Subjective: She had some confusion this morning for which a ct scan was obtained that was unremarkable and her confusion is now improved. She is s/p transfusion with 2 units of PRBCs yesterday with improvement in her fatigue/weakness. She is without any BRBPR or melena Objective Vital Signs and I&Os Vital Signs Date Time Temp Pulse Resp B/P Pulse O2 O2 Flow FiO2 Ox Delivery Rate 10/24 0937 80 168/70 10/24 0728 176/80 10/24 0530 97.6 100 20 180/70 97 Room Air 10/24 0241 160/68 10/24 0045 160/74 10/23 2305 97.6 71 20 158/62 92 Room Air 10/23 1650 98.0 79 20 152/42 96 Room Air 10/23 1443 99.1 74 18 172/75 96 Room Air 10/23 1413 99.0 75 18 174/75 98 Room Air 10/23 1342 81 18 184/78 98 Room Air 10/23 1327 99.0 78 18 187/78 97 Room Air 10/23 1321 78 181/76 10/23 1312 78 181/76 Intake & Output 10/24 1600 10/24 0400 10/23 1600 10/23 0400 10/22 1600 10/22 0400 Intake Total 465 1100 500 Output Total Balance 465 1100 500 Intake, Blood 500 Product Intake, IV 225 500 Intake, Oral 240 600 Number 0 Bowel Movements Patient 160 lb Weight Physical Exam General Appearance: well developed/nourished, no apparent distress, alert, comfortable Head: atraumatic, normal appearance Neck: normal inspection, supple Respiratory: normal breath sounds, chest non-tender Cardiovascular: regular rate/rhythm Abdomen: normal bowel sounds, soft, non-tender, no organomegaly Rectal: deferred Extremities: normal inspection Skin: intact, normal color, warm/dry Current Medications: Current Medications Sig/Regina Start time Last Medication Dose Route Stop Time Status Admin Acetaminophen 650 MG ONCE ONE 10/24 0300 DC 10/24 PO 10/24 0301 0307 Acetaminophen 650 MG ONCE ONE 10/23 1999 DC 10/23 PO 10/23 2000 2113 Acetaminophen 650 MG ONCE ONE 10/23 1615 DC 10/23 PO 10/23 161 1624 Amlodipine Besylate 10 MG DAILY 10/24 1000 AC 10/24 PO 0937 Atorvastatin Calcium 10 MG 1700 10/23 1700 AC 10/23 PO 2114 Ferrous Sulfate 325 MG TID 10/23 2200 AC 10/24 PO 0937 Heparin Sodium 5,000 UNIT Q8 10/23 1400 DC (Porcine) SC Hydralazine HCl 25 MG TID 10/24 1600 UNVr PO Hydralazine HCl 0 .STK-MED ONE 10/23 1312 DC .ROUTE Hydrochlorothiazide 12.5 MG DAILY 10/24 1000 AC 10/24 PO 0937 Hydrochlorothiazide 12.5 MG ONCE ONE 10/24 0545 DC 10/24 PO 10/24 0546 0606 Hydrochlorothiazide 12.5 MG ONCE ONE 10/24 0530 CAN PO 10/24 0531 Hydrochlorothiazide 12.5 MG ONCE ONE 10/24 0115 DC 10/24 PO 10/24 0116 0143 Ibuprofen 600 MG ONCE ONE 10/23 1915 CAN PO 10/23 1916 Insulin Aspart 0 TIDAC 10/24 0800 AC SC Levothyroxine Sodium 0.075 MG DAILY AC 10/23 1407 AC 10/24 PO 0606 Lorazepam 0.5 MG DAILY 10/24 1000 AC 10/24 PO 10/31 0959 0934 Losartan Potassium 100 MG DAILY 10/24 1000 DC PO Melatonin 3 MG AT BEDTIME 10/230 DC 10/23 PO 4 Melatonin 10 MG AT BEDTIME 10/23 2199 AC PO Omeprazole 20 MG DAILY AC 10/24 0700 AC 10/24 PO 0606 Sertraline HCl 50 MG DAILY 10/23 1406 AC 10/24 PO 0935 Sodium Chloride 1,000 ML ONCE ONE 10/23 1400 DC 10/23 IV 10/249 2020 Results Pertinent Lab Results: Laboratory Tests 10/24 10/23 0600 2125 Chemistry Troponin I (< 0.11 ng/ml) 0.02 Hematology CBC w Diff NO MAN DIFF REQ NO MAN DIFF REQ WBC (4.8 - 10.8 /CUMM) 7.5 7.2 RBC (4.20 - 5.40 /CUMM) 3.54 L 3.28 L Hgb (12.0 - 16.0 G/DL) 9.0 L 8.4 L Hct (37 - 47 %) 27.6 L 25.6 L MCV (81.0 - 99.0 FL) 78.1 L 78.1 L MCH (27.0 - 31.0 PG) 25.5 L 25.6 L RDW (11.5 - 14.5 %) 17.7 H 18.1 H Plt Count (130 - 400 /CUMM) 532 H 495 H MPV (7.4 - 10.4 FL) 7.1 L 7.1 L Gran % (42.2 - 75.2 %) 80.3 H 71.9 Lymphocytes % (20.5 - 51.1 %) 7.2 L 12.7 L Monocytes % (1.7 - 9.3 %) 8.3 11.8 H Eosinophils % (0 - 5 %) 4.0 3.4 Basophils % (0.0 - 2.0 %) 0.2 0.2 Absolute Granulocytes (1.4 - 6.5 /CUMM) 6.0 5.1 Absolute Lymphocytes (1.2 - 3.4 /CUMM) 0.5 L 0.9 L Absolute Monocytes (0.10 - 0.60 /CUMM) 0.6 0.8 H Absolute Eosinophils (0.0 - 0.7 /CUMM) 0.3 0.2 Absolute Basophils (0.0 - 0.2 /CUMM) 0 0 PUBS MCHC (33.0 - 37.0 G/DL) 32.7 L 32.8 L 10/23 10/23 10/23 1226 1221 1118 Chemistry Ferritin (11.1 - 264 ng/mL) 5.0 L HDL Cholesterol (40 - 60 mg/dL) 46 Vitamin B12 (239 - 931 pg/mL) 673 Folate (2.76 - 20.0 ng/mL) > 20.0 H Coagulation PT (9.4 - 12.5 SEC) 11.7 INR (0.90 - 1.19) 1.12 APTT (25 - 37 SEC) 28 Hematology CBC w Diff NO MAN DIFF REQ WBC (4.8 - 10.8 /CUMM) 6.0 RBC (4.20 - 5.40 /CUMM) 2.50 L Hgb (12.0 - 16.0 G/DL) 5.8 *L Hct (37 - 47 %) 18.4 *L MCV (81.0 - 99.0 FL) 73.8 L MCH (27.0 - 31.0 PG) 23.2 L RDW (11.5 - 14.5 %) 17.3 H Plt Count (130 - 400 /CUMM) 561 H MPV (7.4 - 10.4 FL) 7.1 L Gran % (42.2 - 75.2 %) 75.3 H Lymphocytes % (20.5 - 51.1 %) 10.6 L Monocytes % (1.7 - 9.3 %) 9.7 H Eosinophils % (0 - 5 %) 3.4 Basophils % (0.0 - 2.0 %) 1.0 Absolute Granulocytes (1.4 - 6.5 /CUMM) 4.5 Absolute Lymphocytes (1.2 - 3.4 /CUMM) 0.6 L Absolute Monocytes (0.10 - 0.60 /CUMM) 0.6 Absolute Eosinophils (0.0 - 0.7 /CUMM) 0.2 Absolute Basophils (0.0 - 0.2 /CUMM) 0.1 PUBS MCHC (33.0 - 37.0 G/DL) 31.4 L Retic Count (0.5 - 2.0 %) 2.59 H Haptoglobin (43 - 212 mg/dL) 248 H
--- NOTE | 2016-10-24 13:43 | PN- Pulmonary ---
Subjective HPI/Critical Care Issues: Had mild confusion this am Head ct neg when i saw her she was back to baseline No complaints PT did not erica aci as out pt BP still running high Objective Current Medications: Current Medications Sig/Regina Start time Last Medication Dose Route Stop Time Status Admin Acetaminophen 650 MG ONCE ONE 10/24 0300 DC 10/24 PO 10/24 0301 0307 Acetaminophen 650 MG ONCE ONE 10/23 1999 DC 10/23 PO 10/23 Acetaminophen 650 MG ONCE ONE 10/23 1615 DC 10/23 PO 10/23 161 1624 Amlodipine Besylate 10 MG DAILY 10/24 1000 AC 10/24 PO 0937 Atorvastatin Calcium 10 MG 1700 10/23 1700 AC 10/23 PO 2114 Ferrous Sulfate 325 MG TID 10/23 2200 AC 10/24 PO 0937 Heparin Sodium 5,000 UNIT Q8 10/23 1400 DC (Porcine) SC Hydralazine HCl 25 MG TID 10/24 1600 AC PO Hydrochlorothiazide 12.5 MG DAILY 10/24 1000 AC 10/24 PO 0937 Hydrochlorothiazide 12.5 MG ONCE ONE 10/24 0545 DC 10/24 PO 10/24 0546 0606 Hydrochlorothiazide 12.5 MG ONCE ONE 10/24 0530 CAN PO 10/24 0531 Hydrochlorothiazide 12.5 MG ONCE ONE 10/24 0115 DC 10/24 PO 10/24 0116 0143 Ibuprofen 600 MG ONCE ONE 10/23 1915 CAN PO 10/23 1916 Insulin Aspart 0 TIDAC 10/24 0800 AC SC Levothyroxine Sodium 0.075 MG DAILY AC 10/23 1407 AC 10/24 PO 0606 Lorazepam 0.5 MG DAILY 10/24 1000 AC 10/24 PO 10/31 0959 0934 Losartan Potassium 100 MG DAILY 10/24 1000 DC PO Melatonin 3 MG AT BEDTIME 10/23 2200 DC 10/23 PO 2114 Melatonin 10 MG AT BEDTIME 10/23 2200 AC PO Omeprazole 20 MG DAILY AC 10/24 0700 AC 10/24 PO 0606 Sertraline HCl 50 MG DAILY 10/23 1406 AC 10/24 PO 0935 Sodium Chloride 1,000 ML ONCE ONE 10/23 1400 DC 10/23 IV 10/24 Vital Signs & I&O Last 24 Hrs of Vitals and I&O: Vital Signs Date Time Temp Pulse Resp B/P Pulse O2 O2 Flow FiO2 Ox Delivery Rate 10/24 0937 80 168/70 10/24 0728 176/80 10/24 0530 97.6 100 20 180/70 97 Room Air 10/24 0241 160/68 10/24 0045 160/74 10/23 2305 97.6 71 20 158/62 92 Room Air 10/23 1650 98.0 79 20 152/42 96 Room Air 10/23 1443 99.1 74 18 172/75 96 Room Air 10/23 1413 99.0 75 18 174/75 98 Room Air 10/23 1342 81 18 184/78 98 Room Air Intake & Output 10/24 1600 10/24 0800 10/24 0000 Intake Total 465 1100 Output Total Balance 465 1100 Intake, IV 225 500 Intake, Oral 240 600 Number 0 Bowel Movements Impression/Plan Impression/Plan Impression/Plan: IMPRESSION Patient is 81 year old female with PMH of HTN, HLD, acid reflux, anemia ( previously on iron pills, stopped 6 months ago by PCP after HB number improved) ISSUES Resolving SEvere Anemia due to gi bleed mostly related to prob avm in small bowel, now s/p transfusion stable hct with no overt bleeding Mild confusion resolved this am consistant with sundowning prob as she didnt sleep. Pt does have mild cog dysfunction with on off anxiety and depression on ssri CKD HTN, uncontrolled on amlodapine and pt intol to arb as out pt Hypothyroid on supp DM on metformin HLD Mild depression and anxiety GERD REC 1. Follow cbc q12 2. Po ppi 3. Oral iron supplementation. 4. Notify GI for signs of overt GI bleeding such as melena or bright blood per rectum. 5. Advance diet as tolerated. 6. Cont amlodapine and start hydrallazine 25 q8 for bp mgt and dc hct if stable 7. COnt out pt meds 8. Guiac all stools 9. WIll follow closely
--- NOTE | 2016-10-24 19:55 | NUR ---
AT 1600 PT'S BP WAS 168/60. 25 MG OF HYDRAZALINE GIVEN SCHEDULED. PATIENT COMPLAINING OF MILD HEADACHE BUT STATES IT WILL GO AWAY ONCE SHE EATS DINNER AND USES THE BATHROOM. BP RECHECKED AT 1730: 150/54. PT STATES HEADACHE DOES FEEL A LITTLE BETTER. PT DOES NOT WANT ANY MEDICATION FOR THE HEADACHE. PATIENT ALERT AND ORIENTED X 3. VSS. WILL CONTINUE TO MONITOR PATIENT'S HEADACHE AND BP.
[2016-10-25 06:57] VITALS: BP 170/74
--- NOTE | 2016-10-25 08:00 | NUR ---
PT BP 170/74 HR 72. DENIES CHEST PAIN, DIZZINESS, HEADACHE, NAUSEA OR SOB. EMMA PIERRE MD PAGED. PER MD TO GIVE SCHEDULED 10AM PO HYDRALAZINE DOSE EARLY. MED GIVEN AT 0725, ONCOMING RN MADE AWARE. TO RECHECK BP IN 45 MINUTES.
[2016-10-25 08:32] LABS: ABSOLUTE BASOPHIL COUNT 0 /CUMM (0.0-0.2); ABSOLUTE EOSINOPHIL COUNT 0.3 /CUMM (0.0-0.7); ABSOLUTE GRANULOCYTE CT 5.4 /CUMM (1.4-6.5); ABSOLUTE LYMPH COUNT 0.5 /CUMM (1.2-3.4); ABSOLUTE MONOCYTE COUNT 0.4 /CUMM (0.10-0.60); BASOPHIL % 0.1 % (0.0-2.0); EOSINOPHIL % 4.5 % (0-5); GRANULOCYTE % 80.5 % (42.2-75.2); HEMATOCRIT 29.4 % (37-47); MEAN CORPUSCULAR HGB 25.6 PG (27.0-31.0); MEAN CORPUSCULAR HGB CONC 32.5 G/DL (33.0-37.0); MEAN CORPUSCULAR VOLUME 78.6 FL (81.0-99.0); PLATELET COUNT 578 /CUMM (130-400); RBC DISTRIBUTION WIDTH 18.3 % (11.5-14.5); RED BLOOD CELL CT 3.74 /CUMM (4.20-5.40); WHITE BLOOD CELL COUNT 6.7 /CUMM (4.8-10.8)
--- NOTE | 2016-10-25 08:40 | PN- Housestaff ---
Subjective Follow-up For: Anemia Subjective: Seen and examined patient. complains of nausea. Denies abdominal pain, vomiting, fever. Had bowel movement which was small, hard and dark. Review of Systems Constitutional: Denies: chills, diaphoresis, fever, malaise, weakness, unexplained weight loss. Cardiovascular: Denies: chest pain, edema, orthopena, palpitations, peripheral edema, syncope. Respiratory: Denies: cough, hemoptysis, orthopnea, short of breath, sputum production, stridor, wheezing. Objective Last 24 Hrs of Vital Signs/I&O Vital Signs Date Time Temp Pulse Resp B/P Pulse O2 O2 Flow FiO2 Ox Delivery Rate 10/25 0853 72 174/70 10/25 0720 72 174/70 10/25 0657 97.9 72 18 170/74 98 Room Air 10/24 2207 98.3 68 20 150/68 99 Room Air 10/24 2157 150/68 10/24 1730 150/54 10/24 1657 168/60 10/24 1457 97.7 68 20 160/58 94 Intake & Output 10/25 1600 10/25 0800 10/25 0000 Intake Total 210 450 Output Total Balance 210 450 Intake, IV 10 Intake, Oral 200 450 Number 0 1 Bowel Movements Physical Exam General Appearance: Alert, Oriented X3, Cooperative, No Acute Distress Cardiovascular: Regular Rate, Normal S1, Normal S2 Lungs: Clear to Auscultation, Normal Air Movement Abdomen: Normal Bowel Sounds, Soft, No Tenderness Extremities: +2 edema on left lower limb Current Medications: Current Medications Sig/Regina Start time Last Medication Dose Route Stop Time Status Admin Acetaminophen 650 MG ONCE ONE 10/24 2114 DC 10/24 PO 10/24 2115 2156 Amlodipine Besylate 10 MG DAILY 10/24 1000 AC 10/25 PO 0853 Atorvastatin Calcium 10 MG 1700 10/23 1700 AC 10/24 PO 1656 Ferrous Sulfate 325 MG TID 10/23 2200 AC 10/25 PO 0852 Hydralazine HCl 25 MG TID 10/24 1600 AC 10/25 PO 0720 Hydrochlorothiazide 12.5 MG DAILY 10/24 1000 AC 10/25 PO 0853 Insulin Aspart 0 TIDAC 10/24 0800 AC SC Levothyroxine Sodium 0.075 MG DAILY AC 10/23 1407 AC 10/25 PO 0611 Lorazepam 0.5 MG DAILY 10/24 1000 AC 10/25 PO 10/31 0959 0853 Losartan Potassium 100 MG DAILY 10/24 1000 DC PO Melatonin 10 MG AT BEDTIME 10/23 2200 AC 10/24 PO 2156 Omeprazole 20 MG DAILY AC 10/24 0700 AC 10/25 PO 0611 Ondansetron HCl 4 MG ONCE ONE 10/25 1030 AC IV 10/25 1031 Sertraline HCl 50 MG DAILY 10/23 1406 AC 10/25 PO 0853 Last 24 Hrs of Lab/Gerard Results Last 24 Hrs of Labs/Mics: Laboratory Tests 10/25/16 0759: CBC w Diff NO MAN DIFF REQ, RBC 3.74 L, MCV 78.6 L, MCH 25.6 L, RDW 18.3 H, MPV 7.0 L, Gran % 80.5 H, Lymphocytes % 8.2 L, Monocytes % 6.7, Eosinophils % 4.5, Basophils % 0.1, Absolute Granulocytes 5.4, Absolute Lymphocytes 0.5 L, Absolute Monocytes 0.4, Absolute Eosinophils 0.3, Absolute Basophils 0, PUBS MCHC 32.5 L Assessment/Plan Assessment: 81-year-old woman with past medical history of hypertension, hyperlipidemia, acid reflux, anemia not taking iron pills since 6 months, is currently being treated in the general medical floor for the following issues: complaining of nausea today #Anemia will give one time dose of zofran for the nausea hemoglobin 5.8 on admission s/p 2 units of packed RBCs H/H today 9.6/29.4 We'll continue to monitor her CBCs Spoke to Dr. Cruz, pt is to kept nothing by mouth for possible push enteroscopy tomorrow Hypertension Systolic consistently in the 170s On Hydralazine 25 mg 3 times a day will increase the dose to 50 mg TID Altered mental status episode of confusion yesterday CT scan was normal, Regular diet DVT prophylaxis by Alps Full code Problem List: 1. Anemia 2. Hypertension Pain Ratin Pain Location: na Pain Goal: Pain 4 or less Pain Plan: current regimen Tomorrow's Labs & Rationales: anemia : cbc/bep
--- NOTE | 2016-10-25 10:51 | PN- Pulmonary ---
Subjective HPI/Critical Care Issues: Doing better No evidence of further GI bleed No further confusion No headache nausea vomiting diarrhea [place] doing better per patient Had bowel movement which was small, hard and dark. Review of Systems Constitutional: Denies: chills, diaphoresis, fever, malaise, weakness, unexplained weight loss. Cardiovascular: Denies: chest pain, edema, orthopena, palpitations, peripheral edema, syncope. Respiratory: Denies: cough, hemoptysis, orthopnea, short of breath, sputum production, stridor, wheezing. Still has slightly elevated blood pressure Objective Current Medications: Current Medications Sig/Regina Start time Last Medication Dose Route Stop Time Status Admin Acetaminophen 650 MG ONCE ONE 10/24 2114 DC 10/24 PO 10/24 211 2156 Amlodipine Besylate 10 MG DAILY 10/24 1000 AC 10/25 PO 0853 Atorvastatin Calcium 10 MG 1700 10/23 1700 AC 10/24 PO 1656 Ferrous Sulfate 325 MG TID 10/23 2200 AC 10/25 PO 0852 Hydralazine HCl 25 MG TID 10/24 1600 AC 10/25 PO 0720 Hydrochlorothiazide 12.5 MG DAILY 10/24 1000 AC 10/25 PO 0853 Insulin Aspart 0 TIDAC 10/24 0800 AC SC Levothyroxine Sodium 0.075 MG DAILY AC 10/23 1407 AC 10/25 PO 0611 Lorazepam 0.5 MG DAILY 10/24 1000 AC 10/25 PO 10/31 0959 0853 Losartan Potassium 100 MG DAILY 10/24 1000 DC PO Melatonin 10 MG AT BEDTIME 10/23 2200 AC 10/24 PO 2156 Omeprazole 20 MG DAILY AC 10/24 0700 AC 10/25 PO 0611 Ondansetron HCl 4 MG ONCE ONE 10/25 1030 DC 10/25 IV 10/25 1031 1037 Sertraline HCl 50 MG DAILY 10/23 1406 AC 10/25 PO 0853 Laboratory Tests 10/25 10/24 0759 0600 Chemistry Troponin I (< 0.11 ng/ml) 0.02 Hematology CBC w Diff NO MAN DIFF REQ NO MAN DIFF REQ WBC (4.8 - 10.8 /CUMM) 6.7 7.5 RBC (4.20 - 5.40 /CUMM) 3.74 L 3.54 L Hgb (12.0 - 16.0 G/DL) 9.6 L 9.0 L Hct (37 - 47 %) 29.4 L 27.6 L MCV (81.0 - 99.0 FL) 78.6 L 78.1 L MCH (27.0 - 31.0 PG) 25.6 L 25.5 L RDW (11.5 - 14.5 %) 18.3 H 17.7 H Plt Count (130 - 400 /CUMM) 578 H 532 H MPV (7.4 - 10.4 FL) 7.0 L 7.1 L Gran % (42.2 - 75.2 %) 80.5 H 80.3 H Lymphocytes % (20.5 - 51.1 %) 8.2 L 7.2 L Monocytes % (1.7 - 9.3 %) 6.7 8.3 Eosinophils % (0 - 5 %) 4.5 4.0 Basophils % (0.0 - 2.0 %) 0.1 0.2 Absolute Granulocytes (1.4 - 6.5 /CUMM) 5.4 6.0 Absolute Lymphocytes (1.2 - 3.4 /CUMM) 0.5 L 0.5 L Absolute Monocytes (0.10 - 0.60 /CUMM) 0.4 0.6 Absolute Eosinophils (0.0 - 0.7 /CUMM) 0.3 0.3 Absolute Basophils (0.0 - 0.2 /CUMM) 0 0 PUBS MCHC (33.0 - 37.0 G/DL) 32.5 L 32.7 L 10/23 10/23 2125 1226 Chemistry Ferritin (11.1 - 264 ng/mL) 5.0 L HDL Cholesterol (40 - 60 mg/dL) 46 Vitamin B12 (239 - 931 pg/mL) 673 Folate (2.76 - 20.0 ng/mL) > 20.0 H Hematology CBC w Diff NO MAN DIFF REQ NO MAN DIFF REQ WBC (4.8 - 10.8 /CUMM) 7.2 6.0 RBC (4.20 - 5.40 /CUMM) 3.28 L 2.50 L Hgb (12.0 - 16.0 G/DL) 8.4 L 5.8 *L Hct (37 - 47 %) 25.6 L 18.4 *L MCV (81.0 - 99.0 FL) 78.1 L 73.8 L MCH (27.0 - 31.0 PG) 25.6 L 23.2 L RDW (11.5 - 14.5 %) 18.1 H 17.3 H Plt Count (130 - 400 /CUMM) 495 H 561 H MPV (7.4 - 10.4 FL) 7.1 L 7.1 L Gran % (42.2 - 75.2 %) 71.9 75.3 H Lymphocytes % (20.5 - 51.1 %) 12.7 L 10.6 L Monocytes % (1.7 - 9.3 %) 11.8 H 9.7 H Eosinophils % (0 - 5 %) 3.4 3.4 Basophils % (0.0 - 2.0 %) 0.2 1.0 Absolute Granulocytes (1.4 - 6.5 /CUMM) 5.1 4.5 Absolute Lymphocytes (1.2 - 3.4 /CUMM) 0.9 L 0.6 L Absolute Monocytes (0.10 - 0.60 /CUMM) 0.8 H 0.6 Absolute Eosinophils (0.0 - 0.7 /CUMM) 0.2 0.2 Absolute Basophils (0.0 - 0.2 /CUMM) 0 0.1 PUBS MCHC (33.0 - 37.0 G/DL) 32.8 L 31.4 L Retic Count (0.5 - 2.0 %) 2.59 H 10/23 10/23 1221 1118 Coagulation PT (9.4 - 12.5 SEC) 11.7 INR (0.90 - 1.19) 1.12 APTT (25 - 37 SEC) 28 Hematology Haptoglobin (43 - 212 mg/dL) 248 H Vital Signs & I&O Last 24 Hrs of Vitals and I&O: Vital Signs Date Time Temp Pulse Resp B/P Pulse O2 O2 Flow FiO2 Ox Delivery Rate 10/25 0853 72 174/70 10/25 0720 72 174/70 10/25 0657 97.9 72 18 170/74 98 Room Air 10/24 2207 98.3 68 20 150/68 99 Room Air 10/24 2157 150/68 10/24 1730 150/54 10/24 1657 168/60 10/24 1457 97.7 68 20 160/58 94 Intake & Output 10/25 1600 10/25 0800 10/25 0000 Intake Total 210 450 Output Total Balance 210 450 Intake, IV 10 Intake, Oral 200 450 Number 0 1 Bowel Movements Impression/Plan Impression/Plan Impression/Plan: IMPRESSION Patient is 81 year old female with PMH of HTN, HLD, acid reflux, anemia ( previously on iron pills, stopped 6 months ago by PCP after HB number improved) ISSUES Resolving SEvere Anemia due to gi bleed mostly related to prob avm in small bowel, now s/p transfusion stable hct with no overt bleeding CKD HTN, uncontrolled on amlodapine and pt intol to arb as out pt Hypothyroid on supp DM on metformin HLD Mild depression and anxiety GERD REC 1. Cbc stable patient is probably ready for discharge however her blood pressure continues to be high this needs to be monitored 2. Po ppi 3. Oral iron supplementation, patient does have hard stool we will start her on stool softeners twice a day 4. Notify GI for signs of overt GI bleeding such as melena or bright blood per rectum. 5. Advance diet as tolerated. 6. Cont amlodapine and increase hydralazine to 50 mg every 8 hours. If the blood pressure continues to be stable later can be discharged if not we will discharge her tomorrow. Discontinue hydrochlorothiazide. 7. COnt out pt meds 8. Guiac all stools 9. WIll follow closely, please order a basic metabolic panel to assess her creatinine today and also do blood work tomorrow if she is here Increase activity
[2016-10-25 14:50] VITALS: BP 162/78
[2016-10-25 22:26] VITALS: BP 168/60
--- NOTE | 2016-10-26 06:24 | PN- Housestaff ---
Subjective Follow-up For: Anemia Complaints: high BP Subjective: I followed up and examined the patient today. the patient is lying comfortably on her bed, is not in acute distress, does not have any complaints. No bleeding , no passing of dark stool, no shortness of breath, chest pain, palpitation, weakness, dizziness. She hasn't had fever since 8 AM yesterday. but her blood pressure has been consistently high with systolic blood pressure in 160s. She is nothing by mouth, pending push enteroscopy later today. Review of Systems Constitutional: Reports: no symptoms. EENTM: Reports: no symptoms. Cardiovascular: Reports: no symptoms. Respiratory: Reports: no symptoms. Gastrointestinal: Reports: no symptoms. Genitourinary: Reports: no symptoms. Musculoskeletal: Reports: no symptoms. Skin: Reports: no symptoms. Neurological/Psychological: Reports: no symptoms. Objective Last 24 Hrs of Vital Signs/I&O Vital Signs Date Time Temp Pulse Resp B/P Pulse O2 O2 Flow FiO2 Ox Delivery Rate 10/25 2226 98.1 68 20 168/60 95 Room Air 10/25 2100 70 168/60 10/25 1552 97.9 73 16 140/56 10/25 1450 98.0 76 20 162/78 95 10/25 0853 72 174/70 10/25 0720 72 174/70 Intake & Output 10/26 0800 10/26 0000 10/25 1600 Intake Total 100 480 Output Total 500 Balance 100 -20 Intake, Oral 100 480 Number 1 Bowel Movements Output, Urine 500 Physical Exam General Appearance: Alert, Oriented X3, Cooperative, No Acute Distress Other Physical Findings: Physical examnination: General: well nourished , patient not in distress Head: Normocephalic, atraumatic Eyes: Pupils normal in size, regular, reacting to light and accommodation, EOM normal, no pallor anymore Ears: B/l normal on inspection Nose: Normal on inspection Throat/mouth: Moist mucosa Neck: Supple, full range of motion, no thyromegaly Heart: Regular rate, regular rhythm, heart sound is loud S2 Lung: Normal breath sound bilaterally Added sound not heard Abd: Soft, non-tender, no distention appreciated Back: Normal range of motion Extremities: Normal knee exam bilaterally, no pedal edema, Distal neurovascular intact Neurologic: Alert, oriented x3, Cranial exam grossly intact, Speech is clear and coherent Skin: Warm and dry Psychiatric: Calm, cooperative, coherant Current Medications: Current Medications Sig/Regina Start time Last Medication Dose Route Stop Time Status Admin Amlodipine Besylate 10 MG DAILY 10/24 1000 AC 10/25 PO 0853 Atorvastatin Calcium 10 MG 1700 10/23 1700 AC 10/25 PO 1649 Ferrous Sulfate 325 MG TID 10/23 2200 AC 10/25 PO 2100 Hydralazine HCl 50 MG TID 10/26 1000 AC PO Hydralazine HCl 25 MG TID 10/24 1600 DC 10/25 PO 2100 Hydrochlorothiazide 12.5 MG DAILY 10/24 1000 DC 10/25 PO 0853 Insulin Aspart 0 TIDAC 10/24 0800 AC 10/25 SC 1714 Levothyroxine Sodium 0.075 MG DAILY AC 10/23 1407 AC 10/26 PO 0619 Lorazepam 0.5 MG DAILY 10/24 1000 AC 10/25 PO 10/31 0959 0853 Melatonin 10 MG AT BEDTIME 10/23 2200 AC 10/25 PO 2059 Omeprazole 20 MG DAILY AC 10/24 0700 AC 10/26 PO 0619 Ondansetron HCl 4 MG ONCE ONE 10/25 1030 DC 10/25 IV 10/25 1031 1037 Senna/Docusate Sodium 1 TAB BID PRN 10/26 0645 AC PO Sertraline HCl 50 MG DAILY 10/23 1406 AC 10/25 PO 0853 Last 24 Hrs of Lab/Gerard Results Last 24 Hrs of Labs/Mics: Laboratory Tests 10/26/16 0601: Anion Gap 6, Estimated GFR 53 L, BUN/Creatinine Ratio 19.0, CBC w Diff NO MAN DIFF REQ, RBC 3.46 L, MCV 79.2 L, MCH 25.6 L, RDW 18.5 H, MPV 7.1 L, Gran % 73.6, Lymphocytes % 11.4 L, Monocytes % 9.1, Eosinophils % 5.7 H, Basophils % 0.2, Absolute Granulocytes 4.7, Absolute Lymphocytes 0.7 L, Absolute Monocytes 0.6, Absolute Eosinophils 0.4, Absolute Basophils 0, PUBS MCHC 32.3 L Assessment/Plan Assessment: 81-year-old woman with past medical history of hypertension, hyperlipidemia, acid reflux, anemia not taking iron pills since 6 months, is currently being treated in the general medical floor for the following issues: #Anemia hemoglobin 5.8 on admission s/p 2 units of packed RBCs H/H today 8.9/27.4 We'll continue to monitor her CBCs Patient is undergoing push enteroscopy later today. Pending results, patient can probably be sent home today (if her blood pressure is controlled), as her hemoglobin has been stable and there has been no active source of bleeding. BP at 2:30pm was 120/66. Continue monitoring after procedure as well, for pending discharge if stable and normal. Diet advancement accordingly. #Hypertension Systolic consistently in the 160s Hydralazine dose was increased to 50 mg 3 times a day from 25 mg 3 times a day this morning #Altered mental status episode of confusion yesterday early AM, but no more CT scan was normal Regular diet DVT prophylaxis by Alps Full code Problem List: 1. Anemia 2. Hypertension Pain Ratin Pain Location: - Pain Goal: Remain pain free Pain Plan: PRN Tomorrow's Labs & Rationales: -, might be discharged today
[2016-10-26 07:32] VITALS: BP 164/76
[2016-10-26 08:24] LABS: ABSOLUTE BASOPHIL COUNT 0 /CUMM (0.0-0.2); ABSOLUTE EOSINOPHIL COUNT 0.4 /CUMM (0.0-0.7); ABSOLUTE GRANULOCYTE CT 4.7 /CUMM (1.4-6.5); ABSOLUTE LYMPH COUNT 0.7 /CUMM (1.2-3.4); ABSOLUTE MONOCYTE COUNT 0.6 /CUMM (0.10-0.60); BASOPHIL % 0.2 % (0.0-2.0); EOSINOPHIL % 5.7 % (0-5); GRANULOCYTE % 73.6 % (42.2-75.2); HEMATOCRIT 27.4 % (37-47); MEAN CORPUSCULAR HGB 25.6 PG (27.0-31.0); MEAN CORPUSCULAR HGB CONC 32.3 G/DL (33.0-37.0); MEAN CORPUSCULAR VOLUME 79.2 FL (81.0-99.0); MEAN PLATELET VOLUME 7.1 FL (7.4-10.4); PLATELET COUNT 530 /CUMM (130-400); RBC DISTRIBUTION WIDTH 18.5 % (11.5-14.5); RED BLOOD CELL CT 3.46 /CUMM (4.20-5.40); WHITE BLOOD CELL COUNT 6.4 /CUMM (4.8-10.8)
[2016-10-26] MEDS ORDERED: SENNA PLUS TAB1 EACH PO (11:05)
[2016-10-26] MEDS ORDERED: HYDRALAZINE HCL50 M1 PO (11:05)
[2016-10-26] MEDS ORDERED: OMEPRAZOLE20 M2 PO (11:05)
[2016-10-26] MEDS ORDERED: FERROUS SULFAT325 M2 PO (11:05)
--- NOTE | 2016-10-26 11:13 | Patient Discharge Instructions ---
Discharge Instructions General Discharge Information You were seen/treated for: Severe anemia, hypertension You had these procedures: Push enteroscopy on 10/26/2016 Watch for these problems: Chest pain, shortness of breath, palpitation, dizziness, worsening weakness, bleeding. Special Instructions: Please visit your primary care physician Brien Viramontes MD within 7-10 days of discharge. Please visited technical maintenance technician Dr. Brown within 7-10 days of discharge. Please return to emergency if symptoms worsen, or in case you have symptoms as mentioned above. Diet Continue normal diet: Yes Recommended Diet: Heart Healthy, Regular Activity Full Activity/No Limits: Yes Activity Self Limited: Yes Acute Coronary Syndrome Inclusion Criteria At DC or during hospital stay patient has or had the following: ACS DIAGNOSIS No Discharge Core Measures Meds if any: Prescribed or Continued at Discharge Meds if any: NOT Prescribed or Continued at Discharge Congestive Heart Failure Inclusion Criteria At DC or during hospital stay patient has or had the following: CHF DIAGNOSIS No Discharge Core Measures Meds if any: Prescribed or Continued at Discharge Meds if any: NOT Prescribed or Continued at Discharge Cerebrovascular accident Inclusion Criteria At DC or during hospital stay patient has or had the following: CVA/TIA Diagnosis No Discharge Core Measures Meds if any: Prescribed or Continued at Discharge Meds if any: NOT Prescribed or Continued at Discharge Venous thromboembolism Inclusion Criteria VTE Diagnosis No VTE Type NONE VTE Confirmed by (Test) NONE Discharge Core Measures - Per Current guidelines, there needs to be overlap - treatment for the first 5 days of Warfarin therapy. - If discharged on Warfarin prior to 5 days of - overlap therapy, the patient will need to be - assessed for post discharge needs including - *Post discharge parental anticoagulation - *Warfarin and/or parental anticoagulation education - *Follow up date to check INR post discharge At least 5 days overlap therapy as Inpatient No Meds if any: Prescribed or Continued at Discharge Note: Overlap Therapy is Warfarin and Anticoagulant Meds if any: NOT Prescribed or Continued at Discharge
--- NOTE | 2016-10-26 12:55 | PN- Pulmonary ---
Subjective HPI/Critical Care Issues: patient is lying comfortably on her bed, is not in acute distress, does not have any complaints. No bleeding, no passing of dark stool, no shortness of breath, chest pain, palpitation, weakness, dizziness. She hasn't had fever since 8 AM yesterday. but her blood pressure has been consistently high with systolic blood pressure in 160s. She is nothing by mouth, pending push enteroscopy later today. Review of Systems Constitutional: Reports: no symptoms. EENTM: Reports: no symptoms. Cardiovascular: Reports: no symptoms. Respiratory: Reports: no symptoms. Gastrointestinal: Reports: no symptoms. Genitourinary: Reports: no symptoms. Musculoskeletal: Reports: no symptoms. Skin: Reports: no symptoms. Neurological/Psychological: Reports: no symptoms. Objective Current Medications: Current Medications Sig/Regina Start time Last Medication Dose Route Stop Time Status Admin Amlodipine Besylate 10 MG DAILY 10/24 1000 AC 10/26 PO 0931 Atorvastatin Calcium 10 MG 1700 10/23 1700 AC 10/25 PO 1649 Ferrous Sulfate 325 MG TID 10/23 2200 AC 10/26 PO 0931 Hydralazine HCl 50 MG TID 10/26 1000 AC 10/26 PO 0931 Hydralazine HCl 25 MG TID 10/24 1600 DC 10/25 PO 2100 Hydrochlorothiazide 12.5 MG DAILY 10/24 1000 DC 10/25 PO 0853 Insulin Aspart 0 TIDAC 10/24 0800 DC 10/25 SC 1714 Insulin Human Regular 0 Q6 10/26 0817 AC 10/26 SC 1249 Levothyroxine Sodium 0.075 MG DAILY AC 10/23 1407 AC 10/26 PO 0619 Lorazepam 0.5 MG DAILY 10/24 1000 AC 10/26 PO 10/31 0959 0930 Melatonin 10 MG AT BEDTIME 10/23 2200 AC 10/25 PO 2059 Omeprazole 20 MG DAILY AC 10/24 0700 AC 10/26 PO 0619 Senna/Docusate Sodium 1 TAB BID PRN 10/26 0645 AC 10/26 PO 0930 Sertraline HCl 50 MG DAILY 10/23 1406 AC 10/26 PO 0931 Sodium Chloride 1,000 ML Q13H 10/26 0915 AC 10/26 IV 0931 Laboratory Tests 10/26 10/25 0601 0759 Chemistry Sodium (137 - 145 mmol/L) 129 L Potassium (3.5 - 5.1 mmol/L) 4.0 Chloride (98 - 107 mmol/L) 95 L Carbon Dioxide (22 - 30 mmol/L) 28 Anion Gap (5 - 16) 6 BUN (7 - 17 mg/dL) 19 H Creatinine (0.5 - 1.0 mg/dL) 1.0 Estimated GFR (>60 ml/min) 53 L BUN/Creatinine Ratio (7 - 25 %) 19.0 Hematology CBC w Diff NO MAN DIFF REQ NO MAN DIFF REQ WBC (4.8 - 10.8 /CUMM) 6.4 6.7 RBC (4.20 - 5.40 /CUMM) 3.46 L 3.74 L Hgb (12.0 - 16.0 G/DL) 8.9 L 9.6 L Hct (37 - 47 %) 27.4 L 29.4 L MCV (81.0 - 99.0 FL) 79.2 L 78.6 L MCH (27.0 - 31.0 PG) 25.6 L 25.6 L RDW (11.5 - 14.5 %) 18.5 H 18.3 H Plt Count (130 - 400 /CUMM) 530 H 578 H MPV (7.4 - 10.4 FL) 7.1 L 7.0 L Gran % (42.2 - 75.2 %) 73.6 80.5 H Lymphocytes % (20.5 - 51.1 %) 11.4 L 8.2 L Monocytes % (1.7 - 9.3 %) 9.1 6.7 Eosinophils % (0 - 5 %) 5.7 H 4.5 Basophils % (0.0 - 2.0 %) 0.2 0.1 Absolute Granulocytes (1.4 - 6.5 /CUMM) 4.7 5.4 Absolute Lymphocytes (1.2 - 3.4 /CUMM) 0.7 L 0.5 L Absolute Monocytes (0.10 - 0.60 /CUMM) 0.6 0.4 Absolute Eosinophils (0.0 - 0.7 /CUMM) 0.4 0.3 Absolute Basophils (0.0 - 0.2 /CUMM) 0 0 PUBS MCHC (33.0 - 37.0 G/DL) 32.3 L 32.5 L Vital Signs & I&O Last 24 Hrs of Vitals and I&O: Vital Signs Date Time Temp Pulse Resp B/P Pulse O2 O2 Flow FiO2 Ox Delivery Rate 10/26 0931 72 162/78 10/26 0931 72 162/78 10/26 0732 97.8 66 18 164/76 95 Room Air 10/25 2226 98.1 68 20 168/60 95 Room Air 10/25 2100 70 168/60 10/25 1552 97.9 73 16 140/56 10/25 1450 98.0 76 20 162/78 95 Intake & Output 10/26 1600 10/26 0800 10/26 0000 Intake Total 100 Output Total Balance 100 Intake, Oral 100 Impression/Plan Impression/Plan Impression/Plan: IMPRESSION Patient is 81 year old female with PMH of HTN, HLD, acid reflux, anemia ( previously on iron pills, stopped 6 months ago by PCP after HB number improved) ISSUES Resolving SEvere Anemia due to gi bleed mostly related to prob avm in small bowel, now s/p transfusion stable hct with no overt bleeding, going for enteroscopy today CKD HTN, uncontrolled on amlodapine and pt intol to arb as out pt Hypothyroid on supp DM on metformin HLD Mild depression and anxiety GERD Hyponatremia due to hctz REC 1. for scope today and if stable can dc home 2. Po ppi 3. Oral iron supplementation, patient does have hard stool we will start her on stool softeners twice a day 4. GI to follow 5. Diet post procedure per gi 6. Cont amlodapine and increase hydralazine to 50 mg every 8 hours. DC patient on current med list and follow up with me as out pt withinone week WIll follow labs as out pt No further hctz
[2016-10-26 14:32] VITALS: BP 120/66
[2016-10-26 16:29] VITALS: BP 125/72
[2016-10-26 18:36] VITALS: BP 140/60
--- NOTE | 2016-10-26 18:37 | NUR ---
RECHECK BP AT THIS TIME 140/60 HR 74 CALL PLACED TO BISQUE WARE DIPPER AT THIS TIME TO MAKE AWARE, RECHECK IN 1 HOUR AND THEN UPDATE.
[2016-10-26 19:40] VITALS: BP 168/60
--- NOTE | 2016-10-26 19:42 | NUR ---
RECHECK BP AT THIS TIME 168/60, CALL PLACED TO BOILER TENDER AT THIS TIME TO MAKE AWARE
[2016-10-26 22:20] VITALS: BP 145/62
--- NOTE | 2016-10-27 05:44 | PN- Housestaff ---
Subjective Follow-up For: anemia Subjective: Pt was comfortable. No issues overnight. BP was slightly elevated overnight. Review of Systems Constitutional: Reports: see HPI. Objective Last 24 Hrs of Vital Signs/I&O Vital Signs Date Time Temp Pulse Resp B/P Pulse O2 O2 Flow FiO2 Ox Delivery Rate 10/26 2220 97.2 66 20 145/62 93 10/26 1940 168/60 10/26 1836 97.8 74 20 140/60 92 Room Air 10/26 1644 66 125/72 10/26 1629 98.2 66 20 125/72 96 10/26 1432 98.1 68 20 120/66 96 10/26 0931 72 162/78 10/26 0931 72 162/78 10/26 0732 97.8 66 18 164/76 95 Room Air Intake & Output 10/27 0800 10/27 0000 10/26 1600 Intake Total 700 225 Output Total Balance 700 225 Intake, IV 225 Intake, Oral 700 0 Physical Exam General Appearance: No Acute Distress Other Physical Findings: General Exam: AAOx3, No acute distress Skin: No rashes. HEENT: PERRLA, EOMI Neck: Supple, No JVD No cervical lymphadenopathy CVS: Reg Rate, Normal S1,S2, No MGR Resp: Normal air entry, no ronchi/rales Abdomen: Soft, No tenderness, Normal Bowel Sounds Neuro: Normal Speech, Strength 5/5 b/l x 4 extremities, Sensation intact, CN III -XII NL, Reflexes 2+ Extremities: No cyanosis, no pedal edema. Current Medications: Current Medications Sig/Regina Start time Last Medication Dose Route Stop Time Status Admin Acetaminophen 650 MG ONCE ONE 10/26 2214 DC 10/26 PO 10/26 Amlodipine Besylate 10 MG DAILY 10/24 1000 AC 10/26 PO 0931 Atorvastatin Calcium 10 MG 1700 10/23 1700 AC 10/26 PO 1644 Chlorhexidine 1 GM .STK-MED ONE 10/26 1438 DC Gluconate TOP 10/26 1439 Ferrous Sulfate 325 MG TID 10/23 2200 AC 10/26 PO 2202 Hydralazine HCl 50 MG TID 10/26 1000 AC 10/26 PO 2202 Hydralazine HCl 25 MG TID 10/24 1600 DC 10/25 PO 2100 Insulin Aspart 0 TIDAC 10/26 1700 AC SC Insulin Aspart 0 TIDAC 10/24 0800 DC 10/25 SD 1714 Insulin Human Regular 0 Q6 10/26 0817 DC 10/26 SC 1249 Levothyroxine Sodium 0.075 MG DAILY AC 10/23 1407 AC 10/26 PO 0619 Lorazepam 0.5 MG DAILY 10/24 1000 AC 10/26 PO 10/31 0959 0930 Melatonin 10 MG AT BEDTIME 10/23 2200 AC 10/26 PO 2202 Omeprazole 20 MG DAILY AC 10/24 0700 AC 10/26 PO 0619 Senna/Docusate Sodium 1 TAB BID PRN 10/26 0645 AC 10/26 PO 2205 Sertraline HCl 50 MG DAILY 10/23 1406 AC 10/26 PO 0931 Sodium Chloride 1,000 ML Q13H 10/26 0915 DC 10/26 IV 0931 Last 24 Hrs of Lab/Gerard Results Last 24 Hrs of Labs/Mics: Laboratory Tests 10/26/16 0601: Anion Gap 6, Estimated GFR 53 L, BUN/Creatinine Ratio 19.0, CBC w Diff NO MAN DIFF REQ, RBC 3.46 L, MCV 79.2 L, MCH 25.6 L, RDW 18.5 H, MPV 7.1 L, Gran % 73.6, Lymphocytes % 11.4 L, Monocytes % 9.1, Eosinophils % 5.7 H, Basophils % 0.2, Absolute Granulocytes 4.7, Absolute Lymphocytes 0.7 L, Absolute Monocytes 0.6, Absolute Eosinophils 0.4, Absolute Basophils 0, PUBS MCHC 32.3 L Assessment/Plan Assessment: 81-year-old woman with past medical history of hypertension, hyperlipidemia, acid reflux, anemia not taking iron pills since 6 months, is currently being treated in the general medical floor for the following issues: #Anemia, blood loss anemia- hemoglobin 5.8 on admission s/p 2 units of packed RBCs H/H today 8.9/27.8 We'll continue to monitor her CBCs. Report from push enteroscopy unavailable at this time. Discussed w/ Dr. Oakley who suggeste that the pt could be discharged home. #Hypertension Pt couldnt be continued on hydralazine due to hyponatremia. Pt unable to tolerate losartan. Continue amladipine and hydralazine dose(increased to 50 mg 3 times a day). To consider lisinopril as an outpatient. #Altered mental status Resolved. CT scan was normal Regular diet DVT prophylaxis by Alps Full code Problem List: 1. Hypertension Pain Ratin Pain Location: none Pain Goal: Pain 4 or less Pain Plan: tyleonol Tomorrow's Labs & Rationales: none.
[2016-10-27 07:14] VITALS: BP 152/70
--- NOTE | 2016-10-27 10:27 | PN- Pulmonary ---
Subjective HPI/Critical Care Issues: Doing well afebrile S/p enteroscopy Stable Objective Current Medications: Current Medications Sig/Regina Start time Last Medication Dose Route Stop Time Status Admin Acetaminophen 650 MG ONCE ONE 10/26 2214 DC 10/26 PO 10/26 2212205 Amlodipine Besylate 10 MG DAILY 10/24 1000 AC 10/27 PO 0852 Atorvastatin Calcium 10 MG 1700 10/23 1700 AC 10/26 PO 1644 Chlorhexidine 1 GM .STK-MED ONE 10/26 1438 DC Gluconate TOP 10/26 1439 Ferrous Sulfate 325 MG TID 10/23 2200 AC 10/27 PO 0852 Hydralazine HCl 50 MG TID 10/26 1000 AC 10/27 PO 0852 Insulin Aspart 0 TIDAC 10/26 1700 AC SC Insulin Human Regular 0 Q6 10/26 0817 DC 10/26 SC 1249 Levothyroxine Sodium 0.075 MG DAILY AC 10/23 1407 AC 10/27 PO 0613 Lorazepam 0.5 MG DAILY 10/24 1000 AC 10/27 PO 10/31 0959 0852 Melatonin 10 MG AT BEDTIME 10/23 2200 AC 10/26 PO 2202 Omeprazole 20 MG DAILY AC 10/24 0700 AC 10/27 PO 0613 Senna/Docusate Sodium 1 TAB BID PRN 10/26 0645 AC 10/26 PO 2205 Sertraline HCl 50 MG DAILY 10/23 1406 AC 10/27 PO 0852 Sodium Chloride 1,000 ML Q13H 10/26 0915 DC 10/26 IV 0931 Vital Signs & I&O Last 24 Hrs of Vitals and I&O: Vital Signs Date Time Temp Pulse Resp B/P Pulse O2 O2 Flow FiO2 Ox Delivery Rate 10/27 0852 66 152/70 10/27 0852 66 152/70 10/27 0714 98.1 66 16 152/70 98 Room Air 10/26 2220 97.2 66 20 145/62 93 10/26 1940 168/60 10/26 1836 97.8 74 20 140/60 92 Room Air 10/26 1644 66 125/72 10/26 1629 98.2 66 20 125/72 96 10/26 1432 98.1 68 20 120/66 96 Intake & Output 10/27 1600 10/27 0800 10/27 0000 Intake Total 700 Output Total Balance 700 Intake, Oral 700 Laboratory Tests 10/26 0601 Chemistry Sodium (137 - 145 mmol/L) 129 L Potassium (3.5 - 5.1 mmol/L) 4.0 Chloride (98 - 107 mmol/L) 95 L Carbon Dioxide (22 - 30 mmol/L) 28 Anion Gap (5 - 16) 6 BUN (7 - 17 mg/dL) 19 H Creatinine (0.5 - 1.0 mg/dL) 1.0 Estimated GFR (>60 ml/min) 53 L BUN/Creatinine Ratio (7 - 25 %) 19.0 Hematology CBC w Diff NO MAN DIFF REQ WBC (4.8 - 10.8 /CUMM) 6.4 RBC (4.20 - 5.40 /CUMM) 3.46 L Hgb (12.0 - 16.0 G/DL) 8.9 L Hct (37 - 47 %) 27.4 L MCV (81.0 - 99.0 FL) 79.2 L MCH (27.0 - 31.0 PG) 25.6 L RDW (11.5 - 14.5 %) 18.5 H Plt Count (130 - 400 /CUMM) 530 H MPV (7.4 - 10.4 FL) 7.1 L Gran % (42.2 - 75.2 %) 73.6 Lymphocytes % (20.5 - 51.1 %) 11.4 L Monocytes % (1.7 - 9.3 %) 9.1 Eosinophils % (0 - 5 %) 5.7 H Basophils % (0.0 - 2.0 %) 0.2 Absolute Granulocytes (1.4 - 6.5 /CUMM) 4.7 Absolute Lymphocytes (1.2 - 3.4 /CUMM) 0.7 L Absolute Monocytes (0.10 - 0.60 /CUMM) 0.6 Absolute Eosinophils (0.0 - 0.7 /CUMM) 0.4 Absolute Basophils (0.0 - 0.2 /CUMM) 0 PUBS MCHC (33.0 - 37.0 G/DL) 32.3 L Impression/Plan Impression/Plan Impression/Plan: IMPRESSION Patient is 81 year old female with PMH of HTN, HLD, acid reflux, anemia ISSUES Resolving SEvere Anemia due to gi bleed mostly related to prob avm in small bowel, now s/p transfusion stable hct with no overt bleeding, s/p enteroscopy full report not yet available CKD HTN, uncontrolled on amlodapine and pt intol to arb as out pt, now on hydrallazine Hypothyroid on supp DM on metformin HLD Mild depression and anxiety GERD Hyponatremia due to hctz REC 1. Check bmp and cbc now (can be done stat) and ask gi if stableshe can dc home today 2. Po ppi 3. Oral iron supplementation, patient does have hard stool we will start her on stool softeners twice a day 4. GI to follow 5. Diet post procedure per gi 6. Cont amlodapine and hydralazine to 50 mg every 8 hours. DC patient on current med list and follow up with me as out pt withinone week
[2016-10-27 11:26] LABS: ABSOLUTE BASOPHIL COUNT 0 /CUMM (0.0-0.2); ABSOLUTE EOSINOPHIL COUNT 0.1 /CUMM (0.0-0.7); ABSOLUTE GRANULOCYTE CT 4.1 /CUMM (1.4-6.5); ABSOLUTE LYMPH COUNT 0.6 /CUMM (1.2-3.4); ABSOLUTE MONOCYTE COUNT 0.5 /CUMM (0.10-0.60); BASOPHIL % 0.4 % (0.0-2.0); EOSINOPHIL % 2.6 % (0-5); GRANULOCYTE % 75.2 % (42.2-75.2); HEMATOCRIT 27.8 % (37-47); MEAN CORPUSCULAR HGB 25.4 PG (27.0-31.0); MEAN CORPUSCULAR HGB CONC 32.1 G/DL (33.0-37.0); MEAN CORPUSCULAR VOLUME 79.3 FL (81.0-99.0); MEAN PLATELET VOLUME 6.6 FL (7.4-10.4); PLATELET COUNT 550 /CUMM (130-400); RBC DISTRIBUTION WIDTH 18.1 % (11.5-14.5); RED BLOOD CELL CT 3.51 /CUMM (4.20-5.40); WHITE BLOOD CELL COUNT 5.4 /CUMM (4.8-10.8)
[2016-10-27] MEDS ORDERED: OMEPRAZOLE20 M2 PO (13:29)
[2016-10-27] MEDS ORDERED: OMEPRAZOLE40 M1 PO (13:30)
[2016-10-27] MEDS ORDERED: HYDRALAZINE HCL50 M1 PO (13:31)
[2016-10-27] MEDS ORDERED: SENNA PLUS TAB1 EACH PO (13:31)
[2016-10-27] MEDS ORDERED: FERROUS SULFAT325 M2 PO (13:34)
[2016-10-27 13:52] VITALS: BP 136/62
--- NOTE | 2016-10-28 15:13 | Proc Note Endoscopy ---
Endoscopy Procedure Medical History: unchanged (see [facility] consult) Mental Status: alert/oriented Heart/Lung Eval Prior to Sedation: within normal limits Candidate for Sedation? Yes Procedure Date: 10/26/16 Procedure Type: push enteroscopy with biopsy Supervisor Color Making: Roberto Oakley MD ASA Classification: III Indications: Recurrent iron deficiency anemia with guaiac positive stool. Instrument: diagnostic gastroscope Meds Received: MAC Patient's Tolerance: good Complications: none Extent Reached: mid jejunum Procedure: After getting written informed consent the patient was placed in the left lateral decubitus position with pulse oximetry, cardiac monitoring, and supplemental oxygen given. A bite block was inserted and IV sedation was given until the desired effect was achieved. A high definition upper Olympus endoscope was then inserted into the mouth and advanced to the mid jejunum with little difficulty. Retroflexed views and photodocumentation was obtained. Findings: Esophagus. The esophageal mucosa was grossly normal in appearance with a normal appearing Z line at 31cm from the incisiors. The hiatal narrowing was at 35 cm from the incisors accounting for 4cm sliding hiatal hernia. Stomach: On retroflexed views there was a moderate size hiatal hernia and while there were no James erosions there was a 1 cm clean-based, cratered ulcer along the edge of the hiatal hernia sac that was benign in appearance. Biopsies were obtained from the edges of the ulcer with cold biopsy forceps were sent to pathology for further evaluation. Within the antrum there were 2 other less than 1 cm clean-based ulcers. The remainder of the gastric mucosa was grossly normal in appearance. Distention and peristalsis of the stomach appeared normal. Random biopsies were also obtained from the antrum with cold biopsy forceps and were sent to pathology for further evaluation. Duodenum: The duodenal bulb, sweep, and folds are grossly normal in appearance. Jejunum: The villi to the mid jejunum was grossly normal appearance. There was bile appreciated throughout the jejunum and there was no active bleeding or AVMs appreciated. Impression: 1. 1 cm cratered ulcer in the fundus along the edge of the hiatal hernia status post biopsies. 2. 4 cm sliding hiatal hernia. 3. 2 other small, clean-based benign antral ulcers. 4. No active bleeding appreciated. Recommendations: 1. Her diet should be advanced as tolerated. 2. She should follow an antireflux regimen. 3. She should continue an oral PPI. 4. She should avoid NSAIDs. 5. She should follow up the pathology results me as an outpatient. 6. She should repeat upper endoscopy in 2 months to rule out malignancy and confirm healing of the ulcers. 7. She should resume iron supplementation. CC: NABILA JONES,TONYA Wiseman
--- NOTE | 2016-10-29 10:54 | Discharge Summary ---
Visit Information Visit Dates Admission Date: 10/23/16 Discharge Date: 10/27/16 Hospital Course Course Attending Physician: TONYA PETERSON MD Primary Care Physician: TONYA PETERSON MD Hospital Course: CT head IMPRESSION: Motion limited study. No acute intracranial pathology. This critical result was discussed with Brianne Durán MD by telephone at 10/24/2016 6:55 AM and it was ascertained that the content and urgency of the report was understood at the time of direct communication. Procedures push enteroscopy with biopsy 10/26 Impression: 1. 1 cm cratered ulcer in the fundus along the edge of the hiatal hernia status post biopsies. 2. 4 cm sliding hiatal hernia. 3. 2 other small, clean-based benign antral ulcers. 4. No active bleeding appreciated. Recommendations: 1. Her diet should be advanced as tolerated. 2. She should follow an antireflux regimen. 3. She should continue an oral PPI. 4. She should avoid NSAIDs. 5. She should follow up the pathology results me as an outpatient. 6. She should repeat upper endoscopy in 2 months to rule out malignancy and confirm healing of the ulcers. 7. She should resume iron supplementation. DC days vitals and labs Vital Signs & I&O Last 24 Hrs of Vitals and I&O: Vital Signs Date Time Temp Pulse Resp B/P Pulse O2 O2 Flow FiO2 Ox Delivery Rate 10/27 0852 66 152/70 10/27 0852 66 152/70 10/27 0714 98.1 66 16 152/70 98 Room Air 10/26 2220 97.2 66 20 145/62 93 10/26 1940 168/60 10/26 1836 97.8 74 20 140/60 92 Room Air 10/26 1644 66 125/72 10/26 1629 98.2 66 20 125/72 96 10/26 1432 98.1 68 20 120/66 96 Intake & Output 10/27 1600 10/27 0800 10/27 0000 Intake Total 700 Output Total Balance 700 Intake, Oral 700 Laboratory Tests 10/26 0601 Chemistry Sodium (137 - 145 mmol/L) 129 L Potassium (3.5 - 5.1 mmol/L) 4.0 Chloride (98 - 107 mmol/L) 95 L Carbon Dioxide (22 - 30 mmol/L) 28 Anion Gap (5 - 16) 6 BUN (7 - 17 mg/dL) 19 H Creatinine (0.5 - 1.0 mg/dL) 1.0 Estimated GFR (>60 ml/min) 53 L BUN/Creatinine Ratio (7 - 25 %) 19.0 Hematology CBC w Diff NO MAN DIFF REQ WBC (4.8 - 10.8 /CUMM) 6.4 RBC (4.20 - 5.40 /CUMM) 3.46 L Hgb (12.0 - 16.0 G/DL) 8.9 L Hct (37 - 47 %) 27.4 L MCV (81.0 - 99.0 FL) 79.2 L MCH (27.0 - 31.0 PG) 25.6 L RDW (11.5 - 14.5 %) 18.5 H Plt Count (130 - 400 /CUMM) 530 H MPV (7.4 - 10.4 FL) 7.1 L Gran % (42.2 - 75.2 %) 73.6 Lymphocytes % (20.5 - 51.1 %) 11.4 L Monocytes % (1.7 - 9.3 %) 9.1 Eosinophils % (0 - 5 %) 5.7 H Basophils % (0.0 - 2.0 %) 0.2 Absolute Granulocytes (1.4 - 6.5 /CUMM) 4.7 Absolute Lymphocytes (1.2 - 3.4 /CUMM) 0.7 L Absolute Monocytes (0.10 - 0.60 /CUMM) 0.6 Absolute Eosinophils (0.0 - 0.7 /CUMM) 0.4 Absolute Basophils (0.0 - 0.2 /CUMM) 0 PUBS MCHC (33.0 - 37.0 G/DL) 32.3 L Patient is 81 year old female with PMH of HTN, HLD, acid reflux, anemia Came in with severe Anemia due to gi bleed, Pt did have an egd and enteroscopy which showed a one cm ulcer in the fundus with hiatal hernia. She was stable and s/p transfusion stable hct with no overt bleeding and doing well CKD stable state 2 HTN, uncontrolled on amlodapine and pt intol to arb as out pt, now on hydrallazine and did well Hypothyroid on supp DM on metformin HLD Mild depression and anxiety GERD Hyponatremia due to hctz OUT PT FOllow up and plan Po ppi Avoid nsaid Meds reviewed pt to cont ppi and currnt htn meds including amlodapine and hydrallazine Rpt endoscopy in few weeks Follow up with gi and me in the next week Allergies: Coded Allergies: No Known Drug Allergies (10/23/16) adhesive (UNKNOWN 10/23/16) Disposition Summary Disposition Principal Diagnosis: Severe blood loss Anemia due to gi bleed- one cm ulcer in the fundus with hiatal hernia. UGI BLEED CKD stable state 2 HTN, uncontrolled on amlodapine and pt intol to arb as out pt, now on hydrallazine and did well Hypothyroid on supp DM on metformin HLD Mild depression and anxiety GERD Hyponatremia due to hctz improved Mild sundowning resolved Additional Diagnosis: as above Discharge Disposition: home health services Discharge Instructions General Discharge Information Code Status: Full Code Patient's Diet: low fat diet Patient's Activity: as erica Follow-Up Instructions/Appts: Dr peterson and Dr Brown Medications at Discharge Discharge Medications: Stop taking the following medications: Hydrochlorothiazide/Losartan (Hyzaar 12.5 MG-100 MG) 1 TAB TAB ORAL DAILY Continue taking these medications: METFORMIN HCL (Metformin) 500 MG TABLET 500 Milligram ORAL TWICE DAILY Qty = 180 Amlodipine Besylate (Amlodipine Besylate) 10 MG TABLET 10 Milligram ORAL DAILY Qty = 90 Levothyroxine Sodium (Levothyroxine Sodium) 75 MCG TABLET 0.075 Milligram ORAL DAILY BEFORE BREAKFAST Qty = 90 Lovastatin (Lovastatin) 40 MG TABLET 1 Tablet ORAL DAILY Qty = 90 Instructions: with food Lorazepam (Lorazepam) 0.5 MG TABLET 0.5 Milligram ORAL DAILY Qty = 180 Sertraline HCl (Sertraline HCl) 50 MG TABLET 1 Tablet ORAL DAILY Qty = 90 Melatonin (Melatonin) 10 MG TABLET 1 Tablet ORAL Every night Start taking the following new medications: Sennosides/Docusate Sodium (Senna Plus Tablet) 8.6 MG-50 MG TABLET 1 Tablet ORAL TWICE DAILY as needed for CONSTIPATION Qty = 30 No Refills Instructions: - Hydralazine HCl (Hydralazine HCl) 50 MG TABLET 50 Milligram ORAL THREE TIMES DAILY Qty = 90 Refills = 1 Instructions: . Ferrous Sulfate (Ferrous Sulfate) 325 MG (65 MG IRON) TABLET. 325 Milligram ORAL DAILY Qty = 30 No Refills Instructions: . Omeprazole (Omeprazole) 40 MG CAPSULE. 1 Capsule ORAL DAILY Qty = 30 No Refills Copies To: CODIE JONES,MARCEL Ferrell; NABILA JONES,TONYA Wiseman Attending MD Review Statement Documenting Attending: TONYA PETERSON MD
== END 2016-10-27 14:48 | disposition home health service (06) | DRG 378 ==
LOC: ENRESERVTM → ENRESERVDT → ERH 10:45 → 2NA 12:33 → ERHI 12:33 → ENPENDDIS 12:33 → 2NA 15:36
PROVIDERS: Dermatology; Internal Medicine; Internal Medicine Endocrinology, Diabetes & Metabolism; Physician Assistant; ADMIT Internal Medicine Pulmonary Disease
PROC: 30233N1 Transfusion of Nonautologous Red Blood Cells into Peripheral Vein, Percutaneous Approach (ICD-10-PCS; 2016-10-23)
PROC: 0DB68ZX Excision of Stomach, Via Natural or Artificial Opening Endoscopic, Diagnostic (ICD-10-PCS; principal; 2016-10-26)
DX: K25.4 Chronic or unspecified gastric ulcer with hemorrhage (principal); E87.1 Hypo-osmolality and hyponatremia; F05 Delirium due to known physiological condition; E11.22 Type 2 diabetes mellitus with diabetic chronic kidney disease; D50.0 Iron deficiency anemia secondary to blood loss (chronic); I12.9 Hypertensive chronic kidney disease with stage 1 through stage 4 chronic kidney disease, or unspecified chronic kidney disease; E03.9 Hypothyroidism, unspecified; N18.9 Chronic kidney disease, unspecified; Z79.84 Long term (current) use of oral hypoglycemic drugs; K21.9 Gastro-esophageal reflux disease without esophagitis; F32.9 Major depressive disorder, single episode, unspecified; F41.9 Anxiety disorder, unspecified; K44.9 Diaphragmatic hernia without obstruction or gangrene; E78.5 Hyperlipidemia, unspecified
CPT/HCPCS: 2NAP; 36415; 82436; 83010; 86920; 88305; 88312; 93005; 93010; 99291; J0360; J1644; J2405; J3490; P9016